=== PATIENT | female | born 1965 | race Caucasian/White ===

== ENCOUNTER 2024-12-05 03:41 | Inpatient (IN) | payer MEDICAID ==
[~2024-12-05] VITALS: Ht 172.7 cm; Wt 71.9 kg
[2024-12-05] VITALS (30 sets, daily range): BP systolic 91–130; BP diastolic 34–68; PULSE 60–120; RESP 14–22; TEMP 98.4–99; O2SAT 96–100
--- NOTE | 2024-12-05 04:02 | Physician Documentation ---
History of Present Illness ~ Chief Complaint: Bloody Emesis Stated Complaint: [facility]FSHANTA FROM [facility] Time Seen by MD: 03:47 HPI 59-year-old female h/o hep C presenting for hematemesis. She reports being diagnosed approximately 5 years ago with hepatitis C for which she completed therapy. She was told that the time that she had cirrhosis. She has not followed up since then. She drinks occasionally 1-2 drinks per month. She tells me she has been yellow for about a year. Today she developed bright red hematemesis and bright red hematochezia CT angio abdomen and pelvis moderate ascites occlusion of the portal vein occlusive thrombus SMV trace left pleural effusion. 3 cm hypodense lesion left hepatic lobe cirrhotic liver with splenomegaly hgb11.0 12/04-> 8.3 12/05 Received 10 mg of vitamin K, 1 g ceftriaxone, 100 mcg octreotide 1000 mL normal saline, albumin, Protonix Sodium 139 total bilirubin 8.74 ALT 92 AST 163 alk-phos 415 lactic acid 2.4 Medication Reconciliation Allergies: Coded Allergies: pseudoephedrine (Verified Allergy, Unknown, 12/05/24) triprolidine (Verified Allergy, Unknown, 12/05/24) Uncoded Allergies: TRIPOLIDINE HYDROCHLORIDE (Allergy, Unknown, 12/05/24) Scheduled Allopurinol* (Allopurinol*), 1 TAB PO DAILY, (Reported) Baclofen (Baclofen), 1 TAB PO HS, (Reported) Bupropion XL (Bupropion Xl), 1 TAB PO QAM, (Reported) Buspirone Hcl* (Buspar*), 1 TAB PO Q12H, (Reported) Celecoxib* (Celebrex*), 100 MG PO DAILY, (Reported) Cholecalciferol (Vitamin D3) (Vitamin D3), 1 TAB PO DAILY, (Reported) Clonidine HCl (Clonidine HCl), 1 TAB PO HS, (Reported) Ferrous Sulfate* (Ferrous Sulfate*), 1 TAB PO DAILY, (Reported) Folic Acid* (Folic Acid*), 1 TAB PO DAILY, (Reported) Hydroxychloroquine Sulfate (Plaquenil), 1 TAB PO Q12H, (Reported) Levothyroxine Sodium (Levothyroxine Sodium), 1 TAB PO QAM, (Reported) Montelukast Sodium (Montelukast Sodium), 1 TAB PO DAILY, (Reported) Paliperidone Palmitate (Invega Trinza), 1.75 ML IM [id number], (Reported) Pantoprazole Sodium (PROTONIX tablet), 1 TAB PO DAILY, (Reported) Potassium Chloride (Klor-Con 8), 1 TAB PO DAILY, (Reported) Trazodone Hcl (Trazodone Hcl), 1-2 TAB PO HS, (Reported) Scheduled PRN Albuterol Sulfate (Ventolin Hfa), 2 PUFFS INH Q4HPRN PRN for wheezing, (Reported) Gabapentin (Neurontin), 1 CAP PO TID PRN for pain, (Reported) Meclizine HCl (Meclizine HCl), 1 TAB PO Q8H PRN for nausea/vomiting, (Reported) Discontinued Medications Clonazepam (Klonopin), 2 TAB PO Q12H PRN PRN for anxiety, (Reported) Discontinued Reason: patient no longer taking Colchicine (Colchicine), 1 CAP PO Q12H, (Reported) Discontinued Reason: patient no longer taking Levothyroxine Sodium* (Synthroid*), 1 TAB PO DAILY, (Reported) Discontinued Reason: wrong med Levothyroxine Sodium* (Synthroid*), 1 TAB PO DAILY, (Reported) Discontinued Reason: wrong med Trazodone HCl (Trazodone HCl), 1 TAB PO HS, (Reported) Discontinued Reason: Prescription changed Review of Systems All Other Systems at this time: Reviewed and Negative Constitutional: Denies: fever Respiratory: Denies: SOB with exertion Cardiovascular: Denies: chest pain Gastrointestinal: Denies: abdomen distended, abdominal pain Physical Exam Vital Signs: Temperature: 98.8, Source: Oral, Heart Rate: 114, Respiratory Rate: 18, BP: 97/68, Pulse Oximetry: 98, Weight: 70.450 Physical Exam Jaundiced Nontoxic No active hematemesis or hematochezia The resting comfortably Pulmonary clear to auscultation bilaterally Abdomen soft nontender positive hepatomegaly Neuro awake alert oriented Progress Results/Orders Reviewed/noted all lab results: Yes Results/Orders Orders - RATNA IRBY MD Hepatitis C Ab W/Reflex To Pcr (12/05/24 04:07) Hep A Ab, Igm (12/05/24 04:07) Hep B Core Ab, Tot (12/05/24 04:07) Type And Screen (12/05/24 04:07) Page Hospitalist (12/05/24 04:07) Fill Out Med Reconciliation (12/05/24 04:07) Normal Saline 100ml... W/Octreotide Inj. (12/05/24 04:10) Completed Orders - RATNA IRBY MD Cbc/Diff (12/05/24 04:07) CMP (12/05/24 04:07) Direct Bili (12/05/24 04:07) Pt Inr (12/05/24 04:07) PTT (12/05/24 04:07) Vital Signs 12/05/24 12/05/24 12/05/24 03:44 03:53 04:01 Temp 98.8 98.8 Pulse 114 109 Resp 18 18 14 B/P (MAP) 97/68 97/68 (78) Pulse Ox 98 98 Medical Decision Making Additional info obtained from: old records Additional Comments Esophageal varices, gastric ulcer, spontaneous bacterial peritonitis Departure Disposition: ADMITTED INPATIENT Admitted to Inpatient Unit: to hospitalist Impression: Primary Impression: Hematemesis Qualified Codes: K92.0 - Hematemesis Additional Impressions: Hematochezia Cirrhosis Qualified Codes: K74.60 - Unspecified cirrhosis of liver; R18.8 - Other ascites Referrals: NO PRIMARY CARE PROVIDER (PCP) Critical Care Note Total Time (mins): 30 Critical Care Note The very real possibility of a deterioration of this patient's condition required the highest level of my preparedness for sudden, emergent intervention. I provided critical care services, which included medication orders, frequent reevaluations of the patient's condition and response to treatment, ordering and reviewing test results, and discussing the case with various consultants. Excludes time spent performing separately billable procedures. The critical care time associated with the care of the patient was 30 minutes in acute active GI bleed requiring transfusion. Signature Scribe Signature: na Attestation: RATNA Coleman MD Dec 05, 2024 04:02
[2024-12-05] MEDS ORDERED: potassium Cl 40MEQ/1/2NS 520ml 520 ML IV PRN (04:50)
[2024-12-05] MEDS ORDERED: magnesium Cl slow-release 64mg tablet PO PRN (04:50)
[2024-12-05] MEDS ORDERED: acetaminophen 325mg tablet PO PRN (04:50)
[2024-12-05] MEDS ORDERED: potassium Cl 20 mEq SR tablet PO PRN ×2 (04:50)
[2024-12-05] MEDS ORDERED: magnesium sulf-water 4G/100mL 100 ML IV PRN (04:50)
[2024-12-05] MEDS ORDERED: magnesium sulf-water 2g/50mL 50 ML IV PRN (04:50)
[2024-12-05 05:09] LABS: APTT 35 SECONDS (22-32); INR 2.2 INR; PROTHROMBIN TIME 21.1 SECONDS (9.0-12.0)
[2024-12-05 05:11] LABS: ALANINE AMINOTRANSFERASE 49 U/L (12-78); ALBUMIN 3.8 G/DL (3.4-5.0); ALKALINE PHOSPHATASE 210 IU/L (46-116); ANION GAP 11 (8-16); ASPARTATE AMINO TRANSFERASE 75 U/L (10-37); BILIRUBIN,DIRECT 5.1 MG/DL (0-0.3); BILIRUBIN,TOTAL 6.7 MG/DL (0.1-1.0); BLOOD UREA NITROGEN 13 MG/DL (7-18); BUN/CREATININE RATIO 16.7 (10.0-20.0); CALCIUM 8.3 MG/DL (8.5-10.1); CHLORIDE 110 MMOL/L (99-107); CREATININE 0.78 MG/DL (0.40-0.90); GLUCOSE 120 MG/DL (70-104); POTASSIUM 4.4 MMOL/L (3.5-5.1); SODIUM 142 MMOL/L (135-145); TOTAL CARBON DIOXIDE 21.5 MMOL/L (24-32); eCRCL 80 ML/MIN; eGFR 76 ML/MIN
[2024-12-05] MEDS ORDERED: COLC0.6C3 PO (05:12)
[2024-12-05] MEDS ORDERED: CLON-850 PO (05:12)
[2024-12-05] MEDS ORDERED: TRAM50TA2 PO (05:12)
[2024-12-05] MEDS ORDERED: LAMO100T2 PO (05:12)
[2024-12-05] MEDS ORDERED: POTA8TAB69 PO (05:12)
[2024-12-05] MEDS ORDERED: TRAZ-256 PO (05:12)
[2024-12-05] MEDS ORDERED: MONT-40 PO (05:12)
[2024-12-05] MEDS ORDERED: MELO-102 PO (05:12)
[2024-12-05] MEDS ORDERED: SYN0.088T PO (05:12)
[2024-12-05] MEDS ORDERED: QUET25TA PO (05:12)
[2024-12-05] MEDS ORDERED: FERR325T28 PO (05:12)
[2024-12-05] MEDS ORDERED: HYDR200T80 PO (05:12)
[2024-12-05 05:14] LABS: ALBUMIN/GLOBULIN RATIO 2.5 (1.1-1.5); TOTAL PROTEIN 5.3 G/DL (6.4-8.2)
--- NOTE | 2024-12-05 05:19 | HISTORY AND PHYSICAL-Residence ---
History & Physical Providers to CC Resident Creating Document: YARELI COREY, RES ~ History of Present Illness Reason for Admit\Complaint: GI BLEED History of Present Illness 59-year-old female with history of hepatitis-C status post treatment, cirrhosis of liver, is transferred from [place] for further management of GI bleed. Yesterday at around 5:30 p.m. she took her evening medications and then started having hematemesis. She had to run to the bathroom but could not make it, she also had hematochezia. Has had three episodes of hematochezia so far with the most recent being here in the ED showing bright red blood. Denies any similar episodes in the past. Denies significant chest pains, diaphoresis, fevers/chills, nasal congestion, palpitations, or weight loss/weight gain. Drinks alcohol rarely. For about a year she has been icteric. She was diagnosed with cirrhosis 10 years ago. She does see a GI doctor. She had a colonoscopy around 10 years ago, does not remember the findings. No EGD in the past. Not on blood thinners. Discussed advanced care directives and wishes to be full code. CT abdomen pelvis with contrast at [facility]: Portal vein thrombosis with cavernous transformation. Occluded SMV. Cirrhotic liver and ischemic changes from the thrombosed portal vein. Underlying lesion could not be excluded. 3 cm hypodense lesion left lateral hepatic lobe. Moderate ascites. Was given 1 unit blood at the facility. She also received 10 mg of vitamin K, 1 g of ceftriaxone, octreotide and 1 L normal saline, albumin and Protonix. Allergies: Coded Allergies: pseudoephedrine (Verified Allergy, Unknown, 12/05/24) triprolidine (Verified Allergy, Unknown, 12/05/24) Uncoded Allergies: TRIPOLIDINE HYDROCHLORIDE (Allergy, Unknown, 12/05/24) Past Medical History Past Medical History Cirrhosis Hepatitis-C COPD Past Surgical History Surgical History Comment Endometrial ablation Tubal ligation ROS All Other Systems: Reviewed and Negative ROS Reviewed in full. All negative except for pertinent positive HPI. Constitutional: Denies: fever Respiratory: Denies: SOB with exertion Cardiovascular: Denies: chest pain Gastrointestinal: Denies: abdomen distended, abdominal pain Exam Vitals: Vital Signs Date Time Temp Pulse Resp B/P (MAP) Pulse Ox O2 Delivery O2 Flow Rate FiO2 4/17/25 04:01 98.8 109 14 97/68 (78) 98 General: General: Icteric, Awake and Alert, no acute distress. HEENT: Conjunctiva pale, Sclera icteric, Mucus Membranes dry. Neck: Supple without masses and tenderness. Resp: Unlabored. Equal breath sounds bilaterally. Heart: Regular rhythm, normal S1 and S2, no rub, murmur or gallop. Abdomen: Abdomen distended, tympanic to percussion. Soft, nontender. Normal bowel sounds x4. No guarding or rigidity. Extremities: Normal ROM, no swelling, nontender. No cyanosis,clubbing or e kinza. [employer]: No gross motor or sensory abnormalities. Skin: Icteric appearing. Diagnostic Data Diagnostic Data: Laboratory Tests Test 12/05/24 04:38 Coagulation Comments Advance Care Planning Advanced Care plannin - 30 Minutes Additional Plan 59-year-old female with history of hepatitis-C status post treatment, cirrhosis of liver, is transferred from [place] for further management of GI bleed. Active upper and lower GI bleed, likely variceal bleed Cirrhosis of liver History of hepatitis-C status post treatment Transaminitis Hyperbilirubinemia secondary to above Portal vein thrombosis Awaiting labs at our facility H&H at the other facility 8.3, 25, MCV 88, BUN 13 and creatinine 0.81 was given 1 unit blood transfusion Bilirubin 8.7, ALT 92, AST 16.3, ALP 415, lactic acid 2.4 Repeat H&H, monitor q.4 H&H and transfuse for hemoglobin less than seven CT abdomen pelvis with IV contrast done shows findings positive for portal vein thrombosis with cavernous transformation and occluded SMV. Cirrhotic liver with Splenomegaly and moderate ascites. Started IV Protonix and octreotide Fluid resuscitation normal saline at 75 mL/hour, follow up with repeat lactic Recommended to start spironolactone when stable Continue IV ceftriaxone We will start propranolol as this could be secondary to variceal bleed NPO now, consult GI in a.m. While rounding it was noted that the patient is having active and persistent lower GI bleed, considering she is a cirrhotic and this is probably variceal bleed, we will give her another unit of PRBC and 1 unit of FFP. As per intensivists recommendation she will be transferred to the ICU for further monitoring and care. History of COPD not in exacerbation Awaiting med rec Code Status: Full code DVT prophylaxis: None in view of GI bleed Analgesia/sedation: None Line/tube: PIV GI prophylaxis: Protonix Nutrition: NPO Prognosis: Guarded Disposition: Continue medical management. Yareli Corey MD. IM Resident PGY-2 Helio Addendum #1 Neuro: - Monitor for delirium and hepatic encephalopathy, given history of HCV cirrhosis. #2 CV: - Pt HD stable, monitor vitals closely due to potential for variceal bleeding. #3 Pulm: Pt with history of COPD. - Monitor for respiratory distress; consider BiPAP if hypercapneic or in acute respiratory failure. #4 GI: Pt with GI bleed in the context of HCV cirrhosis and liver dysfunction (MELD 20). Differential diagnosis includes variceal bleed, which is prioritized due to cirrhosis, vs PUD vs colon-related bleed. Transfer to ICU as nurse reports ongoing bleeding. - Start IV protonix and octreotide for suspected variceal bleeding. - Administer vitamin K to address coagulopathy related to liver dysfunction. - Obtain large bore IV access, type and screen, transfuse to maintain Hgb > 7, Plt > 50, INR <1.7. - Consult GI urgently for endoscopic evaluation. - Monitor for signs of hypotension, infection, and encephalopathy. #5 Renal: - Monitor electrolytes #6 ID: SBP ppx with ceftriaxone - Monitor for infection #7 Endo: - Maintain FS 150-180 to prevent stress hyperglycemia. #8 Heme/Onc: - Monitor for bleeding and thrombosis risk. - Replete to INR <1.6, Plt >50, or aPTT <50. - If bleeding persists, repeat INR, CBC, aPTT, fibrinogen, and perform TEG/AMPARO. #9 PPx: - Use SCD for DVT prophylaxis. - Continue PPI f I spent a total of greater than 60 minutes formulating critical care for this patient today. I saw this patient and completed a full visual exam via audio- visual HIPAA compliant technology. Date of Service: Dec 05, 2024 Billing Provider: LENORE BEACH MD, ELIZABETH, RES Dec 05, 2024 05:19 LENORE BEACH MD Dec 05, 2024 07:43
[2024-12-05] MEDS: pantoprazole 40MG/NS 100ML BAG 100 ML IV SCH (05:33)
[2024-12-05] MEDS: octreotide inj. 500 MCG in normal saline 100ml IV soln 97.5 ML IV ONE (05:35)
[2024-12-05] MEDS: normal saline 1000ml 1,000 ML IV SCH (05:51)
[2024-12-05 05:57] LABS: MAGNESIUM 1.7 MG/DL (1.5-2.4); POTASSIUM 4.3 MMOL/L (3.5-5.1)
[2024-12-05 06:20] LABS: PHOSPHORUS 3.6 MG/DL (2.3-4.5)
[2024-12-05] MEDS ORDERED: PALI546S IM (06:23)
[2024-12-05] MEDS ORDERED: GABA300C PO (06:23)
[2024-12-05] MEDS ORDERED: LEVO50TA8 PO (06:23)
[2024-12-05 07:53] LABS: BASOPHILS % (AUTO) 0.1 % (0-1); EOSINOPHILS % (AUTO) 0.2 % (0-6); LYMPHOCYTES # (AUTO) 0.6 X10'3 (1.1-4.8); LYMPHOCYTES % (AUTO) 6.3 % (21-51); MEAN CORPUSCULAR HEMOGLOBIN 29.1 PG (27.0-31.0); MEAN CORPUSCULAR HGB CONC 33.1 g/dL (33.0-36.5); MEAN CORPUSCULAR VOLUME 87.8 FL (78-98); MEAN PLATELET VOLUME 7.5 FL (7.4-10.4); MONOCYTES # (AUTO) 0.6 X10'3 (0-0.9); MONOCYTES % (AUTO) 6.5 % (2-12); NEUTROPHILS # (AUTO) 7.7 X10'3 (1.8-7.7); NEUTROPHILS % (AUTO) 86.9 % (42-75); PLATELET COUNT 201 X10'3 (140-440); RED BLOOD COUNT 2.24 X10'6 (4.20-5.60); RED CELL DISTRIBUTION WIDTH 15.6 % (11.5-14.5); WHITE BLOOD COUNT 8.8 X10'3 (4.5-11.0)
[2024-12-05 07:54] LABS: HEMATOCRIT 19.7 % (35.0-45.0); HEMOGLOBIN 6.5 g/dl (12.0-16.0)
[2024-12-05] MEDS: K and/or MAG REPLACEMENT MC SCH (08:00)
[2024-12-05] MEDS ORDERED: propranolol 10mg tablet PO SCH (08:00)
[2024-12-05] MEDS: CefTRIAXone/D5W-Rocephin 1gm 50 ML IV SCH (09:29)
--- NOTE | 2024-12-05 09:49 | CONSULTATION REPORT - RESIDENT ---
Consult Providers to CC Resident Creating Document: SANDEE DAY RES CC: DAVE HUNT MD History of Present Illness Primary Medical Doctor: Dr. Muniz Reason for Admit\Complaint: hematemesis and hematochezia History of Present Illness 59-year-old female with history of cirrhosis, hep C status post treatment, COPD came as a transfer from [facility] for further evaluation of GI bleed. She had a few episodes of hematochezia yesterday associated with T2-4 episodes of hematemesis. She is having lightheadedness. Denies any syncope. She denies previous history of GI bleed. Denies melena. Not on any blood thinners. She does not recollect having an EGD done in the past but a colonoscopy was done but she does not know the findings. Patient was initially admitted to the floor and then transferred to the ICU in view of recurrent hematochezia. Her hemoglobin dropped and she received one PRBC transfusion the transferring facility and when she came here her hemoglobin was 8 which then dropped to 6.5 and is currently receiving another PRBC transfusion along with FFP. She received treatment with vitamin K, octreotide, Protonix, ceftriaxone and albumin. Allergies: Coded Allergies: pseudoephedrine (Verified Allergy, Unknown, 12/05/24) triprolidine (Verified Allergy, Unknown, 12/05/24) Uncoded Allergies: TRIPOLIDINE HYDROCHLORIDE (Allergy, Unknown, 12/05/24) Home Medications Home Medications Active Reported Neurontin (Gabapentin) 300 Mg Capsule 1 Cap PO TID Levothyroxine Sodium 50 Mcg Tablet 1 Tab PO QAM Invega Trinza (Paliperidone Palmitate) 546 Mg/1.75 Ml Syringe 1.75 Ml IM Q30D Meloxicam 15 Mg Tablet 1 Tab PO DAILY 30 Days Klor-Con 8 (Potassium Chloride) 8 Meq Tablet.er 1 Tab PO DAILY 30 Days Ferrous Sulfate* (Ferrous Sulfate) 325 Mg Tablet 1 Tab PO Q48H Lamictal* (Lamotrigine) 100 Mg Tablet 2 Tab PO DAILY 30 Days Plaquenil (Hydroxychloroquine Sulfate) 200 Mg Tablet 1 Tab PO Q12H 30 Days Colchicine 0.6 Mg Capsule 1 Cap PO Q12H 30 Days Klonopin (Clonazepam) 0.5 Mg Tablet 2 Tab PO Q12H PRN PRN 30 Days Seroquel (Quetiapine Fumarate) 25 Mg Tablet 2 Tab PO HS Seroquel (Quetiapine Fumarate) 25 Mg Tablet 1 Tab PO HS 30 Days Montelukast Sodium 10 Mg Tablet 1 Tab PO DAILY 30 Days Tramadol HCl 50 Mg Tablet 1 Tab PO Q12H PRN PRN 30 Days Trazodone HCl 100 Mg Tablet 1 Tab PO HS 30 Days Past Medical History Past Medical History Cirrhosis, COPD, hep C treatment done Past Surgical History Surgical History Comment Endometrial ligation, tubal ligation ROS ROS ROS Constitutional: No fever, positive for dizziness, weakness. no change in appetite/weight HEENT: No blurring of the vision, No sore throat, epistaxis, tinnitus Cardiovascular: No chest pain/discomfort, palpitations, syncope. No pedal edema Respiratory: No sob, cough,, hemoptysis Gastrointestinal: Positive for hematemesis, hematochezia No abdominal pain, nausea, vomiting. No diarrhea, constipation, melena. Genitourinary: No frquency, urgency, incontinence, nocturia. No dysuria, hematuria Musculoskeletal: No arthralgia, myalgia Endocrine: No, polydipsia, polyuria. No heat or cold intolerance Neurologic: No headache, vertigo. No weakness, numbness or tingling of extremities Psychiatric: No hallucinations/delusions, no anhedonia, no suicidal ideation\ Reviewed in full. All negative except for pertinent positives in HPI Exam Vitals: Vital Signs Date Time Temp Pulse Resp B/P (MAP) Pulse Ox O2 Delivery O2 Flow Rate FiO2 12/05/24 09:02 98.7 100 20 112/57 12/05/24 09:00 96 Room Air General: General: Adult female, AAO x4, not in apparent distress, skin appears yellowish orange tinged Head: Normocephalic with an atraumatic Eyes: Pupils- 3mm, reacting to light, conjunctiva- anicteric Nose and throat: No polyps, septum- normal, no mucosal ulcers Neck: Supple, no lymphadenopathy, no carotid bruit Respiratory: No use of accessory muscles of respiration, Bilateral normal vesiscular breath sounds heard. No wheeze, rhochi or creps Cardiac: S1-S2 heard, rythm regular, no gallop/murmur Abdomen: distended, ascites present no tenderness, no organomegaly, bowel sounds- heard, she is having active hematochezia Extremities: no clubbing, no pedal edema, no deformities, peripheral pulses- 2+ Skin: warm and dry, no rash, no purpura Neuro: No focal deficit, gross cranial nerve exam- normal Diagnostic Data Last Recorded Lab Results: 12/05/24 0722 12/05/24 0519 Diagnostic Data: Laboratory Tests Test 12/05/24 04:38 Prothrombin Time 21.1 SECONDS (9.0-12.0) H INR International Normalized Ratio 2.2 INR Activated Partial Thromboplast Time 35 SECONDS (22-32) H Coagulation Comments Additional Plan 59 F with history of hep C status post treatment, cirrhosis, COPD came as a transfer from [facility] for further evaluation and management of GI bleed. CT abdomen pelvis with contrast at [place]: Portal vein thrombosis with cavernous transformation. Occluded SMV. Cirrhotic liver and ischemic changes from the thrombosed portal vein. Underlying lesion could not be excluded. 3 cm hypodense lesion left lateral hepatic lobe. Moderate ascites Gastrointestinal Hematemesis and hematochezia-suspect esophageal varices versus PUD HCV cirrhosis- MELD of 20 Ascites, Portal vein thrombosis 3 cm hypodense lesion in the left lobe -continue IV Protonix, octreotide -GI consulted for endoscopic evaluation. Appreciate recs -possibly needs diagnostic therapeutic paracentesis -continue SBP prophylaxis with Rocephin -needs further evaluation with MRI abdomen to further characterize the liver lesion -follow up on viral serology Neuro -monitor for hepatic encephalopathy given history of cirrhosis -lactulose 20 mg q12, after endoscopy is done Pulmonary History of COPD -currently not in exacerbation, -albuterol nebulization p.r.n. for wheezing Hematology Anemia, likely acute blood loss Coagulopathy secondary to liver disease -H&H 6.5/19.7, receiving another PRBC transfusion and FFP transfusion for INR of 2.2 -replete to INR of less than 1.6, platelets of more than 50 or aPTT of <50 -If bleeding persists, repeat INR, CBC, aPTT, fibrinogen, and perform TEG/AMPARO. Renal -monitor BMP, at risk of progression to LUCIANO Endo -monitor blood glucose to maintain between 150-180 to prevent stress-induced hyperglycemia Cardiovascular -patient's has been maintaining, continue normal saline at 75 cc per hr Code Status: Full Analgesia/sedation: [place] Line/tube: PIV GI prophylaxis: Protonix DVT prophylaxis: SCD Nutrition: NPO Prognosis: Guarded Disposition: Continue care in ICU, EGD today Sandee Day, ICU PGY-2 resident Date of Service: Dec 05, 2024 Billing Provider: DAVE HUNT MD,SANDEE, RES Dec 05, 2024 09:49
[2024-12-05] MEDS ORDERED: CLON0.1T2 PO (11:46)
[2024-12-05] MEDS ORDERED: TRAZ150T78 PO (11:46)
[2024-12-05] MEDS ORDERED: FOLI1TAB27 PO (11:48)
[2024-12-05] MEDS ORDERED: ALBU18HF2 INH (11:58)
[2024-12-05] MEDS ORDERED: BACL10TA2 PO (11:58)
[2024-12-05] MEDS ORDERED: ALLO100T PO (11:58)
[2024-12-05] MEDS ORDERED: BUPR-344 PO (11:58)
[2024-12-05] MEDS ORDERED: PANT-47 PO (11:58)
[2024-12-05] MEDS ORDERED: CELE-193 PO (11:58)
[2024-12-05] MEDS ORDERED: BUSP5TAB3 PO (11:58)
[2024-12-05] MEDS ORDERED: CHOL100017 PO (11:58)
[2024-12-05] MEDS ORDERED: MECL-302 PO (11:58)
--- NOTE | 2024-12-05 12:12 | CONSULTATION REPORT - RESIDENT ---
Consult Providers to CC Resident Creating Document: HERSON RAO, RES CC: HEIDE WILHELM MD History of Present Illness Reason for Admit\Complaint: Hemetemsis and hematochezia History of Present Illness 59-year-old female with history of cirrhosis, hep C status post treatment, COPD came as a transfer from [facility] for further evaluation of GI bleed. She had a few episodes of hematochezia yesterday associated with T2-4 episodes of hematemesis. She is having lightheadedness. Denies any syncope. She denies previous history of GI bleed. Denies melena. Not on any blood thinners. She does not recollect having an EGD done in the past but a colonoscopy was done but she does not know the findings. Patient was initially admitted to the floor and then transferred to the ICU in view of recurrent hematochezia. Her hemoglobin dropped and she received one PRBC transfusion the transferring facility and when she came here her hemoglobin was 8 which then dropped to 6.5 and is currently receiving another PRBC transfusion along with FFP. She received treatment with vitamin K, octreotide, Protonix, ceftriaxone and albumin. GI was consulted in view of the above. Allergies: Coded Allergies: pseudoephedrine (Verified Allergy, Unknown, 12/05/24) triprolidine (Verified Allergy, Unknown, 12/05/24) Uncoded Allergies: TRIPOLIDINE HYDROCHLORIDE (Allergy, Unknown, 12/05/24) Home Medications Home Medications Active Reported Ventolin Hfa (Albuterol Sulfate) 90 Mcg Hfa.aer.ad 2 Puffs INH Q4HPRN PRN Bupropion Xl (Bupropion HCl) 300 Mg Tab.er.24h 1 Tab PO QAM Celebrex* (Celecoxib) 100 Mg Capsule 100 Mg PO DAILY Vitamin D3 (Cholecalciferol (Vitamin D3)) 25 Mcg (1000 Unit) Tablet 1 Tab PO DAILY PROTONIX tablet (Pantoprazole Sodium) 40 Mg Tablet.dr 1 Tab PO DAILY Meclizine HCl 25 Mg Tablet 1 Tab PO Q8H PRN Baclofen 10 Mg Tablet 1 Tab PO HS Buspar* (Buspirone HCl) 5 Mg Tablet 1 Tab PO Q12H Allopurinol* (Allopurinol) 100 Mg Tablet 1 Tab PO DAILY Folic Acid* (Folic Acid) Y Tab 1 Tab PO DAILY Clonidine HCl 0.1 Mg Tablet 1 Tab PO HS Trazodone Hcl 150 Mg Tablet 1-2 Tab PO HS Neurontin (Gabapentin) 300 Mg Capsule 1 Cap PO TID PRN Levothyroxine Sodium 50 Mcg Tablet 1 Tab PO QAM Invega Trinza (Paliperidone Palmitate) 546 Mg/1.75 Ml Syringe 1.75 Ml IM [id number] Klor-Con 8 (Potassium Chloride) 8 Meq Tablet.er 1 Tab PO DAILY Ferrous Sulfate* (Ferrous Sulfate) 325 Mg Tablet 1 Tab PO DAILY Plaquenil (Hydroxychloroquine Sulfate) 200 Mg Tablet 1 Tab PO Q12H Montelukast Sodium 10 Mg Tablet 1 Tab PO DAILY Past Medical History Past Medical History Cirrhosis, COPD, hep C treatment done Past Surgical History Surgical History Comment Endometrial ligation, tubal ligation ROS ROS All other systems negative except for the pertinent positives mentioned in the HPI Exam Vitals: Vital Signs Date Time Temp Pulse Resp B/P (MAP) Pulse Ox O2 Delivery O2 Flow Rate FiO2 12/05/24 11:26 98.4 104 14 114/66 12/05/24 11:00 99 Room Air General: General: Elderly, AOX4 HEENT: PERRLA, no icterus, pallor, lymphadenopathy, carotid bruit Respiratory system: Bilateral vesicular breath sounds heard, no adventitious breath sounds CVS: S1-S2 heard, no murmurs/rubs/gallop GI: distended, ascites present no tenderness, no organomegaly, bowel sounds- heard, she is having active hematochezia Neuro: No focal neurological deficits present Extremities: No edema cyanosis clubbing/deformities Skin: Warm and dry Diagnostic Data Last Recorded Lab Results: 12/05/24 0722 12/05/24 0519 Diagnostic Data: Laboratory Tests Test 12/05/24 04:38 Prothrombin Time 21.1 SECONDS (9.0-12.0) H INR International Normalized Ratio 2.2 INR Activated Partial Thromboplast Time 35 SECONDS (22-32) H Coagulation Comments Additional Plan Assessment: 59 F with history of hep C status post treatment, cirrhosis, COPD came as a transfer from [facility] for further evaluation and management of GI bleed. GI is consulted for the management of upper and Lower GI bleed. Plan Acxute decompemsated Liver cirrhosis Hematemesis and hematochezia-suspect esophageal varices versus PUD HCV cirrhosis- MELD of 20 Portal vein thrombosis Continue IV Protonix, octreotide Possibly needs diagnostic therapeutic paracentesis Continue SBP prophylaxis with Rocephin -needs further evaluation with MRI abdomen to further characterize the liver lesion -follow up on viral serology EGD, NPO Hypochromic Microcytic Anemia 2/2 acute blood loss Coagulopathy secondary to liver disease -H&H 6.5/19.7, receiving another PRBC transfusion and FFP transfusion for INR of 2.2 -replete to INR of less than 1.6, platelets of more than 50 or aPTT of <50 -If bleeding persists, repeat INR, CBC, aPTT, fibrinogen, and perform TEG/AMPARO. Code Status: Full Analgesia/sedation: [place] Line/tube: PIV GI prophylaxis: Protonix DVT prophylaxis: SCD Nutrition: NPO Prognosis: Guarded Disposition: EGD, NPO Herson Rao MD Internal Medicine, PGY 1 Date of Service: Dec 05, 2024 Billing Provider: HEIDE WILHELM MD, SIVA, RES Dec 05, 2024 12:12
[2024-12-05] MEDS ORDERED: diphenhydrAMINE 50 mg/ml inj ONE (12:36)
[2024-12-05] MEDS ORDERED: MIDAZolam 1 MG/ML 5ML VIAL ONE (12:36)
[2024-12-05] MEDS ORDERED: LIDOcaine 2% Viscous 15ml cup ONE (12:36)
[2024-12-05] MEDS ORDERED: fentaNYL/PF 50MCG/1 ML 2ML syringe ONE (12:36)
[2024-12-05 13:27] LABS: HEMATOCRIT 26.1 % (35.0-45.0); HEMOGLOBIN 8.8 g/dl (12.0-16.0); MEAN CORPUSCULAR HEMOGLOBIN 30.5 PG (27.0-31.0); MEAN CORPUSCULAR HGB CONC 33.7 g/dL (33.0-36.5); MEAN CORPUSCULAR VOLUME 90.5 FL (78-98); MEAN PLATELET VOLUME 7.6 FL (7.4-10.4); PLATELET COUNT 201 X10'3 (140-440); RED BLOOD COUNT 2.88 X10'6 (4.20-5.60); RED CELL DISTRIBUTION WIDTH 15.6 % (11.5-14.5); WHITE BLOOD COUNT 9.8 X10'3 (4.5-11.0)
[2024-12-05 17:20] LABS: HEMATOCRIT 24.2 % (35.0-45.0); HEMOGLOBIN 8.2 g/dl (12.0-16.0); MEAN CORPUSCULAR HEMOGLOBIN 30.3 PG (27.0-31.0); MEAN CORPUSCULAR HGB CONC 33.9 g/dL (33.0-36.5); MEAN CORPUSCULAR VOLUME 89.4 FL (78-98); MEAN PLATELET VOLUME 7.2 FL (7.4-10.4); PLATELET COUNT 211 X10'3 (140-440); RED BLOOD COUNT 2.71 X10'6 (4.20-5.60); RED CELL DISTRIBUTION WIDTH 15.3 % (11.5-14.5); WHITE BLOOD COUNT 10.3 X10'3 (4.5-11.0)
--- NOTE | 2024-12-05 20:08 | PROGRESS NOTE ---
Daily Progress Note Providers to CC ~ Antibiotic Timeout Antibiotic Ordered?: No Subjective The patient had two angy bright red bloody bowel movements this morning when I was evaluating her in the ICU. I talked to Dr. Lee route sales trainee who will take the patient for an EGD tomorrow in his considering taking the patient for a colonoscopy if the EGD is negative Objective Vital Signs Date Time Temp Pulse Resp B/P (MAP) Pulse Ox O2 Delivery O2 Flow Rate FiO2 12/05/24 19:00 98.4 117 20 114/49 (70) 96 Room Air Result Diagram: 12/05/24 1713 12/05/24 0519 Gen. No acute distress alert and oriented 4 Lungs clear to ascultation bilaterally, no wheezes rales or rhonchi appreciated Heart normal sinus rhythm no murmurs rubs or clicks noted Abdomen soft, moderately distended nontender bowel sounds are normoactive Lower extremities no clubbing cyanosis, nor edema appreciated bilaterally Coagulation Studies Laboratory Tests Test 12/05/24 04:38 Prothrombin Time 21.1 SECONDS (9.0-12.0) H INR International Normalized Ratio 2.2 INR Activated Partial Thromboplast Time 35 SECONDS (22-32) H Coagulation Comments Problem\Assessment\Plan Problems/Diagnosis: (1) Hematochezia # GI bleed with hematemesis and hematochezia- On a Protonix drip and octreotide drip route sales trainee is taking the patient for an EGD tomorrow and then if negative may take the patient for colonoscopy the following day. 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 Date of Service: Dec 05, 2024 Billing Provider: TOÑO LEY DO Common Visit Codes: NOT BILLABLE (Did after midnight to be billed by millinery worker) TOÑO LEY DO Dec 05, 2024 20:08
[2024-12-05 21:07] LABS: HEMATOCRIT 22.9 % (35.0-45.0); HEMOGLOBIN 7.8 g/dl (12.0-16.0); MEAN CORPUSCULAR HEMOGLOBIN 30.3 PG (27.0-31.0); MEAN CORPUSCULAR HGB CONC 34.1 g/dL (33.0-36.5); MEAN CORPUSCULAR VOLUME 88.9 FL (78-98); MEAN PLATELET VOLUME 7.4 FL (7.4-10.4); PLATELET COUNT 222 X10'3 (140-440); RED BLOOD COUNT 2.58 X10'6 (4.20-5.60); RED CELL DISTRIBUTION WIDTH 15.1 % (11.5-14.5); WHITE BLOOD COUNT 11.5 X10'3 (4.5-11.0)
[2024-12-05] MEDS: cloNIDine 0.1 mg tablet PO ONE (22:10)
[2024-12-06] VITALS (38 sets, daily range): BP systolic 91–143; BP diastolic 50–78; PULSE 100–122; RESP 11–22; TEMP 98.1–98.8; O2SAT 94–100
[2024-12-06 00:59] LABS: BASOPHILS % (AUTO) 0.4 % (0-1); EOSINOPHILS % (AUTO) 0.4 % (0-6); HEMOGLOBIN 7.2 g/dl (12.0-16.0); LYMPHOCYTES # (AUTO) 0.8 X10'3 (1.1-4.8); LYMPHOCYTES % (AUTO) 7.9 % (21-51); MEAN CORPUSCULAR HEMOGLOBIN 30.3 PG (27.0-31.0); MEAN CORPUSCULAR HGB CONC 33.9 g/dL (33.0-36.5); MEAN CORPUSCULAR VOLUME 89.4 FL (78-98); MEAN PLATELET VOLUME 7.2 FL (7.4-10.4); MONOCYTES # (AUTO) 0.9 X10'3 (0-0.9); MONOCYTES % (AUTO) 9.1 % (2-12); NEUTROPHILS # (AUTO) 8.1 X10'3 (1.8-7.7); NEUTROPHILS % (AUTO) 82.2 % (42-75); PLATELET COUNT 201 X10'3 (140-440); RED BLOOD COUNT 2.36 X10'6 (4.20-5.60); RED CELL DISTRIBUTION WIDTH 15.6 % (11.5-14.5); WHITE BLOOD COUNT 9.9 X10'3 (4.5-11.0)
[2024-12-06 01:07] LABS: HEMATOCRIT 21.1 % (35.0-45.0)
[2024-12-06 01:11] LABS: ALANINE AMINOTRANSFERASE 58 U/L (12-78); ALBUMIN 2.9 G/DL (3.4-5.0); ALKALINE PHOSPHATASE 216 IU/L (46-116); ANION GAP 10 (8-16); ASPARTATE AMINO TRANSFERASE 106 U/L (10-37); BILIRUBIN,TOTAL 10.4 MG/DL (0.1-1.0); BLOOD UREA NITROGEN 21 MG/DL (7-18); BUN/CREATININE RATIO 27.3 (10.0-20.0); CALCIUM 8.2 MG/DL (8.5-10.1); CHLORIDE 113 MMOL/L (99-107); CREATININE 0.77 MG/DL (0.40-0.90); GLUCOSE 113 MG/DL (70-104); MAGNESIUM 1.8 MG/DL (1.5-2.4); SODIUM 144 MMOL/L (135-145); TOTAL CARBON DIOXIDE 20.8 MMOL/L (24-32); eCRCL 81 ML/MIN; eGFR 77 ML/MIN
[2024-12-06 01:14] LABS: ALBUMIN/GLOBULIN RATIO 1.6 (1.1-1.5); PHOSPHORUS 3.1 MG/DL (2.3-4.5); POTASSIUM 4.5 MMOL/L (3.5-5.1); TOTAL PROTEIN 4.7 G/DL (6.4-8.2)
[2024-12-06] MEDS: HYDROcodone/acetaminophen 5mg/325mg tablet PO PRN (02:48)
[2024-12-06 06:22] LABS: BASOPHILS % (AUTO) 0.4 % (0-1); EOSINOPHILS % (AUTO) 0.4 % (0-6); LYMPHOCYTES % (AUTO) 8.7 % (21-51); MEAN CORPUSCULAR HEMOGLOBIN 30.4 PG (27.0-31.0); MEAN CORPUSCULAR HGB CONC 33.7 g/dL (33.0-36.5); MEAN CORPUSCULAR VOLUME 90.2 FL (78-98); MEAN PLATELET VOLUME 7.4 FL (7.4-10.4); MONOCYTES # (AUTO) 1.2 X10'3 (0-0.9); NEUTROPHILS # (AUTO) 9.5 X10'3 (1.8-7.7); NEUTROPHILS % (AUTO) 80.5 % (42-75); PLATELET COUNT 220 X10'3 (140-440); RED BLOOD COUNT 2.14 X10'6 (4.20-5.60); RED CELL DISTRIBUTION WIDTH 15.9 % (11.5-14.5); WHITE BLOOD COUNT 11.8 X10'3 (4.5-11.0)
[2024-12-06 06:27] LABS: HEMOGLOBIN 6.5 g/dl (12.0-16.0)
[2024-12-06 06:28] LABS: HEMATOCRIT 19.3 % (35.0-45.0)
--- NOTE | 2024-12-06 06:28 | PROGRESS NOTE ---
Progress Note Dictate Providers to CC ~ Progress Note: Hgb trending down however no obvious bleeding last night. EGD today Central Line/PICC still needed: N\A Antibiotic Ordered?: Yes Subjective Subjective No new acute issues Objective Vitals Vital Signs Date Time Temp Pulse Resp B/P (MAP) Pulse Ox O2 Delivery O2 Flow Rate FiO2 12/06/24 05:00 109 18 109/60 (76) 96 Room Air 12/06/24 04:00 98.4 Lab Results: 12/06/24 0046 12/06/24 0046 Objective Heart: S1-2 reg Lungs: ronchi at bases Abdomen: Soft, non-tender, BS (+) Ext: No edema Neuro: awake, alert Coagulation Studies Laboratory Tests Test 12/05/24 04:38 Prothrombin Time 21.1 SECONDS (9.0-12.0) H INR International Normalized Ratio 2.2 INR Activated Partial Thromboplast Time 35 SECONDS (22-32) H Coagulation Comments Problem\Assessment\Plan Additional Plan 1-GIB -EGD today -F/U Hgb and transfuse PRBC as needed -Continue Protonix 2-Liver Cirrhosis/Hep C/Portal Vein Thrombosis -Supportive Tx -Resume Lactulose/Rifaximin Shira Hewitt CC time 35min Sepsis Screening Reassessment Date: Dec 06, 2024 DAVE HEWITT MD Dec 06, 2024 06:28
[2024-12-06] MEDS ORDERED: calcium gluconate inj. 2 GM in normal saline 100ml IV soln 100 ML IV ONE (06:40)
[2024-12-06] MEDS: CALCIUM GLUC 1gm/50ml NACL,iso 50 ML IV ONE ×2 (07:01→07:47)
[2024-12-06 09:12] LABS: HEP A AB, IGM Negative (Negative); HEP B CORE AB, TOT Negative (Negative); HEPATITIS C VIRUS ANTIBODY Reactive (Non Reactive)
[2024-12-06] MEDS: ondansetron/PF 4mg/2ml inj IV PRN (09:32)
[2024-12-06] MEDS ORDERED: LIDOcaine 2% Viscous 15ml cup ONE (11:51)
[2024-12-06] MEDS ORDERED: epiNEPHrine 0.1mg/ml 10ml syringe ONE (11:52)
[2024-12-06] MEDS ORDERED: fentaNYL/PF 50MCG/1 ML 2ML syringe ONE (12:25)
[2024-12-06] MEDS ORDERED: MIDAZolam 1 MG/ML 5ML VIAL ONE (12:25)
[2024-12-06] MEDS ORDERED: simethicone 40mg/0.6ml oral drops 30ml ONE (13:19)
--- NOTE | 2024-12-06 19:00 | PROGRESS NOTE ---
Daily Progress Note Providers to CC ~ Antibiotic Timeout Antibiotic Ordered?: No Subjective Patient had an EGD today which demonstrated severe portal hypertensive gastropathy I spoke with Dr. Queen audiovisual tech who states that the patient may bleed for another 3-7 days I have ordered a stat hemogram- MRI is ordered as well to evaluate the patient's liver mass Objective Vital Signs Date Time Temp Pulse Resp B/P (MAP) Pulse Ox O2 Delivery O2 Flow Rate FiO2 12/06/24 18:00 104 22 121/66 (84) 97 Room Air 12/06/24 17:00 98.2 12/06/24 13:28 3.0 Result Diagram: 12/06/24 0558 12/06/24 0046 Gen. No acute distress alert and oriented 4 Lungs clear to ascultation bilaterally, no wheezes rales or rhonchi appreciated Heart normal sinus rhythm no murmurs rubs or clicks noted Abdomen soft, moderately distended nontender bowel sounds are normoactive Lower extremities no clubbing cyanosis, nor edema appreciated bilaterally Coagulation Studies Laboratory Tests Test 12/05/24 04:38 Prothrombin Time 21.1 SECONDS (9.0-12.0) H INR International Normalized Ratio 2.2 INR Activated Partial Thromboplast Time 35 SECONDS (22-32) H Coagulation Comments Problem\Assessment\Plan Problems/Diagnosis: (1) Hematochezia # GI bleed with hematemesis and hematochezia- On a Protonix drip and octreotide drip audiovisual tech is taking the patient for an EGD tomorrow and then if negative may take the patient for colonoscopy the following day. 12/06 status post EGD which demonstrated severe portal hypertensive gastropathy- patient was on b.i.d. 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 # hypodense liver mass MRI with contrast of the abdomen is ordered Date of Service: Dec 06, 2024 Billing Provider: TOÑO LEY DO Common Visit Codes: [id number] INP/OBS CARE(HIGH) TOÑO LEY DO Dec 06, 2024 19:00
[2024-12-06 20:18] LABS: HEMATOCRIT 25.3 % (35.0-45.0); HEMOGLOBIN 8.5 g/dl (12.0-16.0); MEAN CORPUSCULAR HEMOGLOBIN 29.1 PG (27.0-31.0); MEAN CORPUSCULAR HGB CONC 33.5 g/dL (33.0-36.5); MEAN CORPUSCULAR VOLUME 87.1 FL (78-98); PLATELET COUNT 218 X10'3 (140-440); RED BLOOD COUNT 2.91 X10'6 (4.20-5.60); RED CELL DISTRIBUTION WIDTH 16.1 % (11.5-14.5); WHITE BLOOD COUNT 14.5 X10'3 (4.5-11.0)
[2024-12-06] MEDS: pantoprazole 40 MG vial IV SCH (20:38)
[2024-12-07] VITALS (17 sets, daily range): BP systolic 99–146; BP diastolic 54–75; PULSE 103–126; RESP 13–25; TEMP 97.4–98.1; O2SAT 91–97
[2024-12-07 03:56] LABS: BASOPHILS % (AUTO) 0.1 % (0-1); EOSINOPHILS # (AUTO) 0.1 X10'3 (0-0.9); EOSINOPHILS % (AUTO) 0.4 % (0-6); HEMATOCRIT 22.4 % (35.0-45.0); HEMOGLOBIN 7.6 g/dl (12.0-16.0); LYMPHOCYTES # (AUTO) 1.7 X10'3 (1.1-4.8); LYMPHOCYTES % (AUTO) 9.8 % (21-51); MEAN CORPUSCULAR HEMOGLOBIN 29.2 PG (27.0-31.0); MEAN CORPUSCULAR HGB CONC 34.1 g/dL (33.0-36.5); MEAN CORPUSCULAR VOLUME 85.8 FL (78-98); MEAN PLATELET VOLUME 6.7 FL (7.4-10.4); MONOCYTES # (AUTO) 1.6 X10'3 (0-0.9); MONOCYTES % (AUTO) 9.6 % (2-12); NEUTROPHILS # (AUTO) 13.6 X10'3 (1.8-7.7); NEUTROPHILS % (AUTO) 80.1 % (42-75); PLATELET COUNT 220 X10'3 (140-440); RED BLOOD COUNT 2.61 X10'6 (4.20-5.60); RED CELL DISTRIBUTION WIDTH 16.5 % (11.5-14.5)
[2024-12-07 04:06] LABS: ALANINE AMINOTRANSFERASE 82 U/L (12-78); ALBUMIN 2.6 G/DL (3.4-5.0); ALKALINE PHOSPHATASE 243 IU/L (46-116); ANION GAP 9 (8-16); ASPARTATE AMINO TRANSFERASE 161 U/L (10-37); BILIRUBIN,TOTAL 11.1 MG/DL (0.1-1.0); BLOOD UREA NITROGEN 27 MG/DL (7-18); CALCIUM 8.4 MG/DL (8.5-10.1); CHLORIDE 110 MMOL/L (99-107); CREATININE 0.71 MG/DL (0.40-0.90); GLUCOSE 108 MG/DL (70-104); MAGNESIUM 1.9 MG/DL (1.5-2.4); SODIUM 140 MMOL/L (135-145); TOTAL CARBON DIOXIDE 20.9 MMOL/L (24-32); eCRCL 88 ML/MIN; eGFR 85 ML/MIN
[2024-12-07 04:11] LABS: ALBUMIN/GLOBULIN RATIO 1.4 (1.1-1.5); PHOSPHORUS 2.2 MG/DL (2.3-4.5); POTASSIUM 4.1 MMOL/L (3.5-5.1); TOTAL PROTEIN 4.5 G/DL (6.4-8.2)
[2024-12-07 04:24] LABS: NUCLEATED RED BLOOD CELLS 1 /100WBC (0-0); TOTAL CELLS COUNTED 100
[2024-12-07 04:25] LABS: ANISOCYTOSIS 1+; PLATELET ESTIMATE NORMAL
[2024-12-07] MEDS: HYDROcodone/acetaminophen 10/325mg tab PO PRN (07:45)
[2024-12-07 14:48] LABS: MEAN CORPUSCULAR HEMOGLOBIN 29.5 PG (27.0-31.0); MEAN PLATELET VOLUME 6.5 FL (7.4-10.4); PLATELET COUNT 246 X10'3 (140-440); RED BLOOD COUNT 2.33 X10'6 (4.20-5.60); WHITE BLOOD COUNT 21.5 X10'3 (4.5-11.0)
[2024-12-07 14:51] LABS: HEMOGLOBIN 6.9 g/dl (12.0-16.0)
[2024-12-07 14:52] LABS: HEMATOCRIT 20.3 % (35.0-45.0)
--- NOTE | 2024-12-07 19:29 | PROGRESS NOTE ---
Daily Progress Note Providers to CC ~ Antibiotic Timeout Antibiotic Ordered?: Yes Subjective The patient hemoglobin did downtrend yesterday at 8.5 post transfusion to 6.9 this afternoon another unit of packed red blood cells is transfused patient's had multiple questions I am ordering a bleeding scan and the patient continues to drop her hemoglobin I will re-contact GI to we discuss the utility of obtaining a colonoscopy. Objective Vital Signs Date Time Temp Pulse Resp B/P (MAP) Pulse Ox O2 Delivery O2 Flow Rate FiO2 12/07/24 18:32 97.9 117 16 140/63 12/07/24 15:00 94 Room Air 12/06/24 13:28 3.0 Result Diagram: 12/07/24 1437 12/07/24 0308 Gen. No acute distress alert and oriented 4 Lungs clear to ascultation bilaterally, no wheezes rales or rhonchi appreciated Heart normal sinus rhythm no murmurs rubs or clicks noted Abdomen soft, moderately distended nontender bowel sounds are normoactive Lower extremities no clubbing cyanosis, nor edema appreciated bilaterally Coagulation Studies Laboratory Tests Test 12/05/24 04:38 Prothrombin Time 21.1 SECONDS (9.0-12.0) H INR International Normalized Ratio 2.2 INR Activated Partial Thromboplast Time 35 SECONDS (22-32) H Coagulation Comments Problem\Assessment\Plan Problems/Diagnosis: (1) Hematochezia # GI bleed with hematemesis and hematochezia- On a Protonix drip and octreotide drip sign carpenter is taking the patient for an EGD tomorrow and then if negative may take the patient for colonoscopy the following day. 12/06 status post EGD which demonstrated severe portal hypertensive gastropathy- patient was on b.i.d. 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 # hypodense liver mass MRI with contrast of the abdomen is ordered 12/07 the patient could not cooperate to obtain the MRI today- we will attempt to obtain the MRI again tomorrow- he may not be able to obtain the MRI unfortunately the patient may require a liver biopsy Date of Service: Dec 07, 2024 Billing Provider: TOÑO LEY DO Common Visit Codes: [id number] INP/OBS CARE(HIGH) TOÑO LEY DO Dec 07, 2024 19:29
[2024-12-07] MEDS: busPIRone 5mg tablet PO SCH (19:57)
[2024-12-07] MEDS: hydroxychloroquine 200mg tablet PO SCH (19:58)
[2024-12-07 21:29] LABS: HEMATOCRIT 24.3 % (35.0-45.0); HEMOGLOBIN 8.3 g/dl (12.0-16.0); MEAN PLATELET VOLUME 6.6 FL (7.4-10.4); RED CELL DISTRIBUTION WIDTH 15.9 % (11.5-14.5)
[2024-12-07 21:31] LABS: MEAN CORPUSCULAR HEMOGLOBIN 29.6 PG (27.0-31.0); MEAN CORPUSCULAR VOLUME 87.1 FL (78-98); PLATELET COUNT 251 X10'3 (140-440); RED BLOOD COUNT 2.79 X10'6 (4.20-5.60)
[2024-12-07 21:34] LABS: WHITE BLOOD COUNT 26.5 X10'3 (4.5-11.0)
[2024-12-07] MEDS: acetaminophen 325mg tablet PO PRN (22:13)
[2024-12-08] VITALS (11 sets, daily range): BP systolic 85–118; BP diastolic 38–76; PULSE 74–123; RESP 13–24; TEMP 96.4–97.9; O2SAT 94–99
[2024-12-08] MEDS: gabapentin 300mg capsule PO PRN (04:13)
[2024-12-08 06:33] LABS: RED BLOOD COUNT 2.43 X10'6 (4.20-5.60)
[2024-12-08 06:34] LABS: EOSINOPHILS # (AUTO) 0.1 X10'3 (0-0.9); LYMPHOCYTES # (AUTO) 3.8 X10'3 (1.1-4.8); MEAN CORPUSCULAR HEMOGLOBIN 29.9 PG (27.0-31.0); MEAN CORPUSCULAR HGB CONC 33.5 g/dL (33.0-36.5)
[2024-12-08 06:36] LABS: BASOPHILS # (AUTO) 0.1 X10'3 (0-0.2); BASOPHILS % (AUTO) 0.3 % (0-1); EOSINOPHILS % (AUTO) 0.2 % (0-6); HEMOGLOBIN 7.3 g/dl (12.0-16.0); LYMPHOCYTES % (AUTO) 12.6 % (21-51); MEAN CORPUSCULAR VOLUME 89.2 FL (78-98); MEAN PLATELET VOLUME 6.7 FL (7.4-10.4); MONOCYTES # (AUTO) 2.6 X10'3 (0-0.9); MONOCYTES % (AUTO) 8.7 % (2-12); NEUTROPHILS # (AUTO) 23.5 X10'3 (1.8-7.7); NEUTROPHILS % (AUTO) 78.2 % (42-75); PLATELET COUNT 236 X10'3 (140-440)
[2024-12-08 06:44] LABS: HEMATOCRIT 21.6 % (35.0-45.0); WHITE BLOOD COUNT 30.1 X10'3 (4.5-11.0)
[2024-12-08 06:53] LABS: ALANINE AMINOTRANSFERASE 94 U/L (12-78); ALBUMIN 2.5 G/DL (3.4-5.0); ALKALINE PHOSPHATASE 274 IU/L (46-116); ANION GAP 14 (8-16); BILIRUBIN,TOTAL 12.6 MG/DL (0.1-1.0); BLOOD UREA NITROGEN 37 MG/DL (7-18); BUN/CREATININE RATIO 36.3 (10.0-20.0); CALCIUM 8.5 MG/DL (8.5-10.1); CHLORIDE 105 MMOL/L (99-107); CREATININE 1.02 MG/DL (0.40-0.90); GLUCOSE 91 MG/DL (70-104); MAGNESIUM 1.9 MG/DL (1.5-2.4); SODIUM 137 MMOL/L (135-145); TOTAL CARBON DIOXIDE 17.9 MMOL/L (24-32); eCRCL 61 ML/MIN; eGFR 56 ML/MIN
[2024-12-08 07:11] LABS: ASPARTATE AMINO TRANSFERASE 223 U/L (10-37)
[2024-12-08 07:13] LABS: PHOSPHORUS 2.8 MG/DL (2.3-4.5); TOTAL PROTEIN 4.9 G/DL (6.4-8.2)
[2024-12-08 07:15] LABS: POTASSIUM 4.4 MMOL/L (3.5-5.1)
[2024-12-08 07:51] LABS: NUCLEATED RED BLOOD CELLS 4 /100WBC (0-0); TOTAL CELLS COUNTED 100
[2024-12-08 07:52] LABS: ANISOCYTOSIS 1+; PLATELET ESTIMATE NORMAL
[2024-12-08 07:53] LABS: BURR CELLS FEW; POLYCHROMASIA 1+; SCHISTOCYTES FEW
[2024-12-08] MEDS: levoTHYROXINE 25mcg tablet PO SCH (08:23)
[2024-12-08] MEDS: montelukast 10mg tablet PO SCH (08:23)
[2024-12-08] MEDS: allopurinol 100mg tablet PO SCH (08:24)
[2024-12-08] MEDS: BUPROPION HCL 150MG XL 24 HR 150 MG TAB PO SCH (08:24)
[2024-12-08] MEDS: folic acid 1mg tablet PO SCH (08:25)
[2024-12-08] MEDS: piperacillin/tazo 4.5gm/100ml 100 ML IV SCH (08:27)
[2024-12-08] MEDS: propranolol 10mg tablet PO ONE (10:35)
[2024-12-08 14:27] LABS: MEAN CORPUSCULAR HGB CONC 33.3 g/dL (33.0-36.5); MEAN CORPUSCULAR VOLUME 90.1 FL (78-98); MEAN PLATELET VOLUME 7.1 FL (7.4-10.4); PLATELET COUNT 232 X10'3 (140-440); RED BLOOD COUNT 2.24 X10'6 (4.20-5.60); RED CELL DISTRIBUTION WIDTH 16.5 % (11.5-14.5)
[2024-12-08 14:33] LABS: WHITE BLOOD COUNT 25.9 X10'3 (4.5-11.0)
[2024-12-08 14:34] LABS: HEMATOCRIT 20.2 % (35.0-45.0); HEMOGLOBIN 6.7 g/dl (12.0-16.0)
--- NOTE | 2024-12-08 14:50 | RADIOLOGY REPORT ---
Procedure: NM NM GI BLOOD LOSS SCAN Exam Date: 12/08/2024 11:34 AM Clinical History: presistent hematochezia Comparison Study: None Nuclear Medicine Gastrointestinal Bleeding Study. Technique: An aliquot of the patient's blood was withdrawn and the red blood cells were labeled with 22.5 mCi of Tc99m. The labeled red blood cells were then reinjected. Sequential planar images of the abdomen w ere obtained at 1 minute intervals for 90 minutes. Findings: There is expected anatomic activity seen in the heart and great vessels of the abdomen. No abnormal focus of activity is seen to suggest a gastrointestinal bleed. Impression: No evidence of gastrointestinal bleeding during the time of this study.
--- NOTE | 2024-12-08 18:39 | PROGRESS NOTE ---
Daily Progress Note Providers to CC ~ Antibiotic Timeout Antibiotic Ordered?: Yes Subjective The patient's white blood cell count has been up trending I changed antibiotics from Rocephin to Zosyn and ordered a CT scan of the abdomen and pelvis with overnight oral contrast prep. the patient dropped her hemoglobin since yesterday post transfusion from 8.3 to 6.7 and another unit of packed red blood cells has been ordered to be transfused. The patient's GI bleeding scan was negative. Objective Vital Signs Date Time Temp Pulse Resp B/P (MAP) Pulse Ox O2 Delivery O2 Flow Rate FiO2 12/08/24 17:27 97.2 78 16 98/69 12/08/24 15:30 94 Room Air 12/06/24 13:28 3.0 Result Diagram: 12/08/24 1412 12/08/24 0604 Gen. No acute distress alert and oriented, jaundiced and scleral icterus appreciated Lungs clear to ascultation bilaterally, no wheezes rales or rhonchi appreciated Heart normal sinus rhythm no murmurs rubs or clicks noted Abdomen soft, moderately distended nontender bowel sounds are normoactive Lower extremities no clubbing cyanosis, nor edema appreciated bilaterally Coagulation Studies Laboratory Tests Test 12/05/24 04:38 Prothrombin Time 21.1 SECONDS (9.0-12.0) H INR International Normalized Ratio 2.2 INR Activated Partial Thromboplast Time 35 SECONDS (22-32) H Coagulation Comments Problem\Assessment\Plan Problems/Diagnosis: (1) Hematochezia # GI bleed with hematemesis and hematochezia- On a Protonix drip and octreotide drip structural steel worker helper is taking the patient for an EGD tomorrow and then if negative may take the patient for colonoscopy the following day. 12/06 status post EGD which demonstrated severe portal hypertensive gastropathy- patient was on b.i.d. Protonix and per gastroenterology the patient could continue to bleed for an additional 4-7 days # upper and possible lower GI bleed- with significant anemia Status post transfusion 2 units packed red blood cells and 2 units of fresh frozen plasma Hemoglobin slowly downtrending currently 8.2 transfuse to keep hemoglobin above 7.0 12/07 The patient has been transfused a total of 5 units of packed red blood cells- a nuclear medicine bleeding scan is ordered for tomorrow 12/08 the patient's hemoglobin downtrended again today and a 60 unit of packed red blood cells has been ordered to be transfused- GI bleeding scan was negative # significant leukocytosis with a left shift 12/08 DC Rocephin and started IV Zosyn, CT scan of the abdomen and pelvis with overnight oral contrast prep is ordered # hepatitis C with cirrhosis- The patient likely has a esophageal varices Her INR is 2.2 The patient was MELD score is 22 # 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 # hypodense liver mass MRI with contrast of the abdomen is ordered 12/07 the patient could not cooperate to obtain the MRI today- we will attempt to obtain the MRI again tomorrow- he may not be able to obtain the MRI unfortunately the patient may require a liver biopsy Date of Service: Dec 08, 2024 Billing Provider: TOÑO LEY DO Common Visit Codes: [id number] INP/OBS CARE(HIGH) TOÑO LEY DO Dec 08, 2024 18:39
[2024-12-08] MEDS: propranolol 10mg tablet PO SCH (20:11)
[2024-12-08] MEDS: diatr meglu/diatrizoate 30ml oral sol.-(3 dose) bottle PO SCH (21:43)
[2024-12-08 22:54] LABS: HEMATOCRIT 23.8 % (35.0-45.0); HEMOGLOBIN 8.2 g/dl (12.0-16.0); MEAN CORPUSCULAR HEMOGLOBIN 30.6 PG (27.0-31.0); MEAN CORPUSCULAR HGB CONC 34.6 g/dL (33.0-36.5); MEAN CORPUSCULAR VOLUME 88.6 FL (78-98); PLATELET COUNT 197 X10'3 (140-440); RED BLOOD COUNT 2.68 X10'6 (4.20-5.60); RED CELL DISTRIBUTION WIDTH 15.7 % (11.5-14.5); WHITE BLOOD COUNT 24.7 X10'3 (4.5-11.0)
[2024-12-09] VITALS (11 sets, daily range): BP systolic 76–104; BP diastolic 37–80; PULSE 68–87; RESP 14–25; TEMP 97.1–97.6; O2SAT 93–100
[2024-12-09] MEDS: normal saline 1000ml 1,000 ML IV ONE (00:39)
[2024-12-09 05:21] LABS: ALANINE AMINOTRANSFERASE 128 U/L (12-78); ALBUMIN 2.4 G/DL (3.4-5.0); ALKALINE PHOSPHATASE 337 IU/L (46-116); ANION GAP 15 (8-16); BILIRUBIN,TOTAL 14.3 MG/DL (0.1-1.0); BLOOD UREA NITROGEN 47 MG/DL (7-18); BUN/CREATININE RATIO 39.5 (10.0-20.0); CALCIUM 8.5 MG/DL (8.5-10.1); CHLORIDE 104 MMOL/L (99-107); CREATININE 1.19 MG/DL (0.40-0.90); GLUCOSE 69 MG/DL (70-104); SODIUM 136 MMOL/L (135-145); TOTAL CARBON DIOXIDE 17.2 MMOL/L (24-32); eCRCL 53 ML/MIN; eGFR 47 ML/MIN
[2024-12-09 05:23] LABS: ALBUMIN/GLOBULIN RATIO 1.1 (1.1-1.5); ASPARTATE AMINO TRANSFERASE 305 U/L (10-37); PHOSPHORUS 2.9 MG/DL (2.3-4.5); POTASSIUM 4.2 MMOL/L (3.5-5.1); TOTAL PROTEIN 4.6 G/DL (6.4-8.2)
[2024-12-09 05:45] LABS: BASOPHILS % (AUTO) 0.2 % (0-1); EOSINOPHILS # (AUTO) 0.1 X10'3 (0-0.9); EOSINOPHILS % (AUTO) 0.2 % (0-6); HEMATOCRIT 23.8 % (35.0-45.0); HEMOGLOBIN 8.2 g/dl (12.0-16.0); LYMPHOCYTES # (AUTO) 1.7 X10'3 (1.1-4.8); LYMPHOCYTES % (AUTO) 7.5 % (21-51); MEAN CORPUSCULAR HEMOGLOBIN 30.5 PG (27.0-31.0); MEAN CORPUSCULAR HGB CONC 34.3 g/dL (33.0-36.5); MEAN CORPUSCULAR VOLUME 89.2 FL (78-98); MEAN PLATELET VOLUME 6.6 FL (7.4-10.4); MONOCYTES # (AUTO) 1.8 X10'3 (0-0.9); MONOCYTES % (AUTO) 7.9 % (2-12); NEUTROPHILS # (AUTO) 19.2 X10'3 (1.8-7.7); NEUTROPHILS % (AUTO) 84.2 % (42-75); PLATELET COUNT 183 X10'3 (140-440); RED BLOOD COUNT 2.67 X10'6 (4.20-5.60); WHITE BLOOD COUNT 22.8 X10'3 (4.5-11.0)
[2024-12-09 06:25] LABS: PLATELET ESTIMATE NORMAL; TOTAL CELLS COUNTED 100
[2024-12-09 06:26] LABS: ANISOCYTOSIS 1+
[2024-12-09] MEDS ORDERED: iohexol 300mg/ml 100ml inj. ONE (10:12)
--- NOTE | 2024-12-09 11:48 | RADIOLOGY REPORT ---
CLINICAL INFORMATION: 59 years old, Female; sepsis. TECHNIQUE: Axial CT images of the abdomen and pelvis were obtained after the uneventful administrati on of 100 mL Omnipaque 300 IV contrast. The patient also ingested oral contrast prior to the exam. Co mirna and sagittal reformatted images were obtained, reviewed, and stored. All CT scans at this [facility] are performed using dose modulation techniques as appropriate to a performed exam includi ng the following: Automated exposure control was utilized; adjustment of the MA and/or KV according t o patient size; and use of iterative reconstruction technique. CTDIvol = 30.42 mGy DLP = 1656.38 mGy-cm COMPARISON: CTA of the abdomen and pelvis dated 12/05/2024. FINDINGS: Lung bases: Partially visualized small bilateral pleural effusions, left greater than right with over lying atelectasis. Respiratory motion artifact limits evaluation of the lung bases. Moderate hiatal h ernia. Liver: Abnormal heterogeneous enhancement of the liver secondary to portal vein thrombosis, with nupur ling defects in the main portal vein and right and left portal veins, similar to the recent CTA exam. The main portal vein filling defect extends adjacent to the confluence of the splenic vein and SMV. SMV and splenic vein are patent. Liver is poorly evaluated due to the heterogeneous enhancement assoc iated with the portal vein thrombosis. Slightly more focal areas of hypo enhancement in the left hepa tic lobe segment 2 measuring up to 3.4 cm, for which neoplasm, malignancy can not be excluded. Nodula r contour of the liver and relative enlargement of the left hepatic lobe, which may be seen with cirr hosis in the appropriate clinical setting. Biliary: Small calcified gallstones in the gallbladder. Spleen: Unremarkable. Pancreas: Moderately atrophic. Adrenal glands: Unremarkable. No mass. Kidneys: No hydronephrosis or mass. Aorta/Vascular: Dense atherosclerotic calcification. No abdominal aortic aneurysm. Retroperitoneum: No mass or lymphadenopathy. Bowel/mesentery: No small bowel obstruction. Appendix is visualized and appears unremarkable. Areas of colonic wall thickening may be due to 3rd spacing of fluid. Moderate ascites in the abdomen and pe lvis. Pelvic organs: Grossly unremarkable. Bladder: Unremarkable. No mass. Abdominal wall: Diffuse anasarca. Bones: No acute fracture or focal intraosseous lesion. IMPRESSION: 1. Portal vein thrombosis again visualized, similar in appearance compared to the prior CTA exam. 2. Cirrhotic liver morphology. 3. Moderate ascites. 4. Anasarca. 5. Heterogeneous enhancement of the liver due to the portal vein thrombosis. Slightly more focal area of hypo enhancement in the left hepatic lobe segment 2, may also be due to the portal vein thrombosi s, although neoplasm, including malignancy can not be excluded. Correlate with clinical findings. MRI liver mass protocol could be considered to further characterize if clinically indicated. 6. Cholelithiasis. 7. Bilateral pleural effusions. 8. Additional findings as described above.
[2024-12-09 14:42] LABS: HEMATOCRIT 24.3 % (35.0-45.0); HEMOGLOBIN 8.3 g/dl (12.0-16.0); MEAN CORPUSCULAR HEMOGLOBIN 30.4 PG (27.0-31.0); MEAN CORPUSCULAR VOLUME 89.4 FL (78-98); MEAN PLATELET VOLUME 6.7 FL (7.4-10.4); PLATELET COUNT 186 X10'3 (140-440); RED BLOOD COUNT 2.72 X10'6 (4.20-5.60); RED CELL DISTRIBUTION WIDTH 15.7 % (11.5-14.5); WHITE BLOOD COUNT 23.9 X10'3 (4.5-11.0)
--- NOTE | 2024-12-09 15:16 | PROGRESS NOTE- Residence ---
Progress Note - Resident Providers to CC Resident Creating Document: HERSON RAO RES CC: HEIDE WILHELM MD ~ Antibiotic Timeout Antibiotic Ordered?: No Subjective Was examined at bedside, no new complaints or overnight acute events. Objective Vital Signs Date Time Temp Pulse Resp B/P (MAP) Pulse Ox O2 Delivery O2 Flow Rate FiO2 12/09/24 09:17 18 12/09/24 09:00 79 98/41 (60) 83 94/65 (75) 82 76/48 (57) 12/09/24 08:00 95 Room Air 12/09/24 06:00 97.6 12/06/24 13:28 3.0 Result Diagram: 12/09/24 1408 12/09/24 0450 General: Elderly, AOX4 HEENT: PERRLA, no icterus, pallor, lymphadenopathy, carotid bruit Respiratory system: Bilateral vesicular breath sounds heard, no adventitious breath sounds CVS: S1-S2 heard, no murmurs/rubs/gallop GI: distended, ascites present no tenderness, no organomegaly, bowel sounds- heard Neuro: No focal neurological deficits present Extremities: No edema cyanosis clubbing/deformities Skin: Warm and dry Coagulation Studies Laboratory Tests Test 12/05/24 04:38 Prothrombin Time 21.1 SECONDS (9.0-12.0) H INR International Normalized Ratio 2.2 INR Activated Partial Thromboplast Time 35 SECONDS (22-32) H Coagulation Comments Assessment Assessment 59 F with history of hep C status post treatment, cirrhosis, COPD came as a transfer from [facility] for further evaluation and management of GI bleed. GI is consulted for the management of upper and Lower GI bleed. Patient was currently stable with H&H being stable. Plan Plan Acxute decompemsated Liver cirrhosis Portal Hypertensive gastropathy HCV cirrhosis- MELD of 20 Portal vein thrombosis Continue IV Protonix EGD revealed portal hypertensive gastropathy Possibly needs diagnostic therapeutic paracentesis Continue SBP prophylaxis with Rocephin -needs further evaluation with MRI abdomen to further characterize the liver lesion Hypochromic Microcytic Anemia 2/2 acute blood loss Coagulopathy secondary to liver disease -H&H stable Consider iron supplementation Code Status: Full Analgesia/sedation: [place] Line/tube: PIV GI prophylaxis: Protonix DVT prophylaxis: SCD Prognosis: Guarded Disposition: As the patient was stable, patient was being signed off. Please consult if required. Herson Rao MD Internal Medicine, PGY 1 Date of Service: Dec 09, 2024 Billing Provider: HEIDE WILHELM MD,HERSON, RES Dec 09, 2024 15:16
[2024-12-09] MEDS: midodrine 5mg tablet PO SCH (16:25)
--- NOTE | 2024-12-09 19:31 | PROGRESS NOTE ---
Daily Progress Note Providers to CC ~ Antibiotic Timeout Antibiotic Ordered?: Yes Subjective The patient's liver function continues to worsened today however hemoglobin has finally stabilized- the CT scan of the abdomen and pelvis oral contrast prep did not demonstrate any angy abscesses fluid collections other than generalized ascites. The patient was confused today and difficult to understand her speech she does have a normal and ammonia level however the patient was mother and [id number] were at bedside and brought up if the patient is at the place where she may need to be on comfort care/ hospice care- the patient did remember that the last time she has a liver biopsy was appears 10 years ago at that time she she had cirrhosis but it was not severe cirrhosis that was when she had received hepatitis-C treatment however the patient was positive for hepatitis-C antibody. Objective Vital Signs Date Time Temp Pulse Resp B/P (MAP) Pulse Ox O2 Delivery O2 Flow Rate FiO2 12/09/24 15:00 97.6 78 20 104/41 (62) 96 Room Air 12/06/24 13:28 3.0 Result Diagram: 12/09/24 1408 12/09/24 0450 Gen. No acute distress alert and oriented, jaundiced and scleral icterus appreciated Lungs clear to ascultation bilaterally, no wheezes rales or rhonchi appreciated Heart normal sinus rhythm no murmurs rubs or clicks noted Abdomen soft, moderately distended nontender bowel sounds are normoactive Lower extremities no clubbing cyanosis, nor edema appreciated bilaterally Coagulation Studies Laboratory Tests Test 12/05/24 04:38 Prothrombin Time 21.1 SECONDS (9.0-12.0) H INR International Normalized Ratio 2.2 INR Activated Partial Thromboplast Time 35 SECONDS (22-32) H Coagulation Comments Problem\Assessment\Plan Problems/Diagnosis: (1) Hematochezia The patient was transferred from [facility] with a angy GI bleed and had significant hematochezia which has since slow down the patient had a EGD with Dr. Queen and discovered severe portal hypertensive gastropathy- the patient has been transfused a total of 6 units of packed red blood cells and one fresh frozen plasma pack - since yesterday afternoon the patient was hemoglobin has stabilized. I did order a GI bleeding scan which was negative for active bleeding. There is a hypodense lesion found on her initial CAT scan at [facility] and we attempted to obtain an MRI of the abdomen and pelvis however the patient could not cooperate enough to complete the study. The patient was liver function is worsening daily- the patient is mother and [id number] were at bedside when I evaluated the patient today they did ask if the patient is at the point where she needs hospice care. 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 Physical therapy worked with the patient today and recommending rehab # GI bleed with hematemesis and hematochezia- On a Protonix drip and octreotide drip vacation sales advisor is taking the patient for an EGD tomorrow and then if negative may take the patient for colonoscopy the following day. 12/06 status post EGD which demonstrated severe portal hypertensive gastropathy- patient was on b.i.d. Protonix and per gastroenterology the patient could continue to bleed for an additional 4-7 days # upper and possible lower GI bleed- with significant anemia Status post transfusion 2 units packed red blood cells and 2 units of fresh frozen plasma Hemoglobin slowly downtrending currently 8.2 transfuse to keep hemoglobin above 7.0 12/07 The patient has been transfused a total of 5 units of packed red blood cells- a nuclear medicine bleeding scan is ordered for tomorrow 12/08 the patient's hemoglobin downtrended again today and a 6 units of packed red blood cells has been ordered to be transfused- GI bleeding scan was negative 12/09 hemoglobin stable today # significant leukocytosis with a left shift 12/08 DC Rocephin and started IV Zosyn, CT scan of the abdomen and pelvis with overnight oral contrast prep is ordered 12/09 no abscess or fluid collection was appreciated # hepatitis C with cirrhosis- The patient likely has a esophageal varices Her INR is 2.2 The patient was MELD score is 22 12/09 ordered daily INR liver function continues to worsen daily # 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 # hypodense liver mass MRI with contrast of the abdomen is ordered 12/07 the patient could not cooperate to obtain the MRI today- we will attempt to obtain the MRI again tomorrow- he may not be able to obtain the MRI unfortunately the patient may require a liver biopsy # encephalopathy likely metabolic- Serum ammonia level is normal rechecked daily serum ammonia level Disposition: Patient was extremely weak and per physical therapy will require rehab placement 12/09 the patient was mother and [id number] inquired today if the patient needs hospice care- this may be where we are heading. I could not give a definitive answered today. Date of Service: Dec 09, 2024 Billing Provider: TOÑO LEY DO Common Visit Codes: [id number] INP/OBS CARE(HIGH) TOÑO LEY DO Dec 09, 2024 19:31
[2024-12-10] VITALS (11 sets, daily range): BP systolic 80–134; BP diastolic 43–111; PULSE 72–101; RESP 11–24; TEMP 97.3–98.3; O2SAT 92–98
[2024-12-10 06:39] LABS: HEMOGLOBIN 7.3 g/dl (12.0-16.0); MEAN CORPUSCULAR HEMOGLOBIN 30.8 PG (27.0-31.0); MEAN PLATELET VOLUME 6.7 FL (7.4-10.4); MONOCYTES # (AUTO) 1.2 X10'3 (0-0.9); RED BLOOD COUNT 2.37 X10'6 (4.20-5.60); WHITE BLOOD COUNT 20.4 X10'3 (4.5-11.0)
[2024-12-10 06:40] LABS: BASOPHILS # (AUTO) 0.1 X10'3 (0-0.2); BASOPHILS % (AUTO) 0.2 % (0-1); EOSINOPHILS % (AUTO) 0.2 % (0-6); LYMPHOCYTES # (AUTO) 2.6 X10'3 (1.1-4.8); LYMPHOCYTES % (AUTO) 12.7 % (21-51); MEAN CORPUSCULAR HGB CONC 33.4 g/dL (33.0-36.5); MEAN CORPUSCULAR VOLUME 92.3 FL (78-98); NEUTROPHILS # (AUTO) 16.5 X10'3 (1.8-7.7); NEUTROPHILS % (AUTO) 80.9 % (42-75); PLATELET COUNT 153 X10'3 (140-440); RED CELL DISTRIBUTION WIDTH 16.4 % (11.5-14.5)
[2024-12-10 06:44] LABS: INR 1.1 INR; PROTHROMBIN TIME 11.3 SECONDS (9.0-12.0)
[2024-12-10 06:56] LABS: HEMATOCRIT 21.9 % (35.0-45.0)
[2024-12-10 07:07] LABS: ALANINE AMINOTRANSFERASE 141 U/L (12-78); ALBUMIN 2.2 G/DL (3.4-5.0); ALKALINE PHOSPHATASE 412 IU/L (46-116); ANION GAP 16 (8-16); BILIRUBIN,TOTAL 16.6 MG/DL (0.1-1.0); BLOOD UREA NITROGEN 57 MG/DL (7-18); CALCIUM 8.5 MG/DL (8.5-10.1); CHLORIDE 104 MMOL/L (99-107); MAGNESIUM 2.1 MG/DL (1.5-2.4); SODIUM 135 MMOL/L (135-145); THYROID STIMULATING HORMONE 1.81 ulU/ml (0.34-4.50); TOTAL CARBON DIOXIDE 15.4 MMOL/L (24-32)
[2024-12-10 07:31] LABS: ASPARTATE AMINO TRANSFERASE 325 U/L (10-37); BUN/CREATININE RATIO 39.6 (10.0-20.0); CREATININE 1.44 MG/DL (0.40-0.90); GLUCOSE 79 MG/DL (70-104); PHOSPHORUS 3.8 MG/DL (2.3-4.5); POTASSIUM 3.6 MMOL/L (3.5-5.1); TOTAL PROTEIN 4.5 G/DL (6.4-8.2); eCRCL 43 ML/MIN; eGFR 38 ML/MIN
[2024-12-10] MEDS: mag hydrox/Alum hydrox/simeth 30ml oral suspension PO PRN (08:40)
[2024-12-10 08:51] LABS: NUCLEATED RED BLOOD CELLS 6 /100WBC (0-0); TOTAL CELLS COUNTED 100
[2024-12-10 08:53] LABS: PLATELET ESTIMATE NORMAL
[2024-12-10 08:54] LABS: ANISOCYTOSIS 2+; HYPOCHROMASIA 1+
[2024-12-10 08:55] LABS: POLYCHROMASIA 2+
[2024-12-10] MEDS: furosemide 20 MG/2 ML vial IV ONE (11:41)
[2024-12-10 12:17] LABS: INR 1.1 INR; PROTHROMBIN TIME 11.4 SECONDS (9.0-12.0)
[2024-12-10] MEDS: albuterol 2.5 MG/3 ML nebule NEB SCH (12:53)
--- NOTE | 2024-12-10 14:00 | PATHOLOGY REPORT ---
[facility] [address] [place] [address] SURGICAL PATHOLOGY REPORT CaseNumber: [id number] Surgeon:Sujatha Queen M.D. CLINICAL INFORMATION CLINICAL INFORMATION: Hematemesis/melena. DIAGNOSIS DIAGNOSIS: STOMACH, ANTRUM; BIOPSY - MINIMAL CHRONIC GASTRITIS INCLUDING MILD ATROPHY. - IMMUNOHISTOCHEMICAL STAIN NEGATIVE FOR HELICOBACTER PYLORI. MICROSCOPIC DESCRIPTION MICROSCOPIC DESCRIPTION: Microscopic examination is performed on one H&E stained slide. Present is ga stric antral mucosa with focal minimal chronic inflammation within the lamina propria and mild atroph y. There is no evidence of ulcer, dysplasia, or malignancy. A histochemical stain for intestinal meta plasia (Alcian blue) is completed and is negative. An immunohistochemical stain for Helicobacter pylo ri is completed and is negative. GROSS DESCRIPTION GROSS DESCRIPTION: Received in a container of formalin labeled with the patient's name, number, and " antrum BX" is a 0.5 x 0.1 x 0.1 cm piece of brown tissue. The specimen is entirely submitted as A1. The time at which the specimen was removed was 1327. The time at which the specimen was placed in formal in was 1328. Electronically signed by: Son Barrett D.O. 12/10/2024 1:28:00 PM
[2024-12-10] MEDS: gabapentin 100mg capsule PO PRN (17:34)
--- NOTE | 2024-12-10 18:47 | PROGRESS NOTE ---
Daily Progress Note Providers to CC ~ Antibiotic Timeout Antibiotic Ordered?: No Subjective Patient is seen in her room she is chronically ill-appearing cooperated during physical exam. Diet advanced to full liquid diet. 93% on room air. Objective Vital Signs Date Time Temp Pulse Resp B/P (MAP) Pulse Ox O2 Delivery O2 Flow Rate FiO2 12/10/24 17:35 20 12/10/24 15:00 98.3 83 83/49 (60) 92 Room Air 12/06/24 13:28 3.0 Result Diagram: 12/10/24 0553 12/10/24 0553 General-patient not in any acute distress, chronically ill-appearing, mildly lethargic, appear pale HEENT-atraumatic normocephalic, neck supple without elevated JVD, no thyromegaly or carotid bruit. No lymphadenopathy bilaterally. Eyes-no icterus or pallor seen in eyes Chest-decreased breath sounds to auscultation bilaterally, breathing nonlabored no tachypnea, bilateral wheezing present , no crackles. Heart-S1-S2 normal, regular heart rate no murmur Abdomen bowel sounds positive on auscultation, soft nondistended nontender no guarding, no rigidity Skin no active skin rash Neurology-grossly intact, nonfocal , mildly lethargic but responded to verbal commands and cooperated during physical exam Extremity- 1 plus pedal edema able to move all 4 extremities Psychiatry - patient is not confused or agitated cooperated during physical examination Coagulation Studies Laboratory Tests Test 12/05/24 04:38 12/10/24 12:00 Activated Partial Thromboplast Time 35 SECONDS (22-32) H Prothrombin Time 11.4 SECONDS (9.0-12.0) INR International Normalized Ratio 1.1 INR Coagulation Comments Problem\Assessment\Plan Problems/Diagnosis: (1) Hematochezia The patient was transferred from [facility] with a angy GI bleed and had significant hematochezia which has since slow down the patient had a EGD with Dr. Queen and discovered severe portal hypertensive gastropathy- the patient has been transfused a total of 6 units of packed red blood cells and one fresh frozen plasma pack - since yesterday afternoon the patient was hemoglobin has stabilized. I did order a GI bleeding scan which was negative for active bleeding. There is a hypodense lesion found on her initial CAT scan at [facility] and we attempted to obtain an MRI of the abdomen and pelvis however the patient could not cooperate enough to complete the study. The patient was liver function is worsening daily- the patient is mother and [id number] were at bedside when I evaluated the patient today they did ask if the patient is at the point where she needs hospice care. 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 Physical therapy worked with the patient today and recommending rehab # GI bleed with hematemesis and hematochezia- On a Protonix drip and octreotide drip manager purchasing is taking the patient for an EGD tomorrow and then if negative may take the patient for colonoscopy the following day. 12/06 status post EGD which demonstrated severe portal hypertensive gastropathy- patient was on b.i.d. Protonix and per gastroenterology the patient could continue to bleed for an additional 4-7 days # upper and possible lower GI bleed- with significant anemia Status post transfusion 2 units packed red blood cells and 2 units of fresh frozen plasma Hemoglobin slowly downtrending currently 8.2 transfuse to keep hemoglobin above 7.0 12/07 The patient has been transfused a total of 5 units of packed red blood cells- a nuclear medicine bleeding scan is ordered for tomorrow 12/08 the patient's hemoglobin downtrended again today and a 6 units of packed red blood cells has been ordered to be transfused- GI bleeding scan was negative 12/09 hemoglobin stable today # significant leukocytosis with a left shift 12/08 DC Rocephin and started IV Zosyn, CT scan of the abdomen and pelvis with overnight oral contrast prep is ordered 12/09 no abscess or fluid collection was appreciated # hepatitis C with cirrhosis- The patient likely has a esophageal varices Her INR is 2.2 The patient was MELD score is 22 12/09 ordered daily INR liver function continues to worsen daily # 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 # hypodense liver mass MRI with contrast of the abdomen is ordered 12/07 the patient could not cooperate to obtain the MRI today- we will attempt to obtain the MRI again tomorrow- he may not be able to obtain the MRI unfortunately the patient may require a liver biopsy # encephalopathy likely metabolic- Serum ammonia level is normal rechecked daily serum ammonia level Disposition: Patient is weak and per physical therapy will require rehab placement. Insurance Processing Clerk Cecilia working on discharge plan to [facility] rehab authorization is pending Date of Service: Dec 10, 2024 Billing Provider: MITCH GAMBOA MD Common Visit Codes: [id number] INP/OBS CARE(HIGH) MITCH GAMBOA MD Dec 10, 2024 18:47
[2024-12-10] MEDS ORDERED: CefTRIAXone 2gm/D5W 50ml BAG 50 ML IV SCH (18:55)
[2024-12-10] MEDS: pantoprazole 40mg Tablet.DR PO SCH (20:24)
[2024-12-11] VITALS (22 sets, daily range): BP systolic 74–106; BP diastolic 38–58; PULSE 74–99; RESP 14–22; TEMP 96.6–98.7; O2SAT 90–98
[2024-12-11 06:16] LABS: INR 1.1 INR; PROTHROMBIN TIME 11.4 SECONDS (9.0-12.0)
[2024-12-11] MEDS: CefTRIAXone 2gm/D5W 50ml BAG 50 ML IV SCH (08:02)
[2024-12-11] MEDS: BUPROPION HCL 150MG XL 24 HR 150 MG TAB PO SCH (08:02)
[2024-12-11 11:38] LABS: ANION GAP 15 (8-16); BLOOD UREA NITROGEN 66 MG/DL (7-18); CHLORIDE 102 MMOL/L (99-107); CREATININE 2.41 MG/DL (0.40-0.90); SODIUM 132 MMOL/L (135-145); TOTAL CARBON DIOXIDE 15.2 MMOL/L (24-32)
[2024-12-11 11:39] LABS: ALANINE AMINOTRANSFERASE 168 U/L (12-78); ALBUMIN 2.1 G/DL (3.4-5.0); ALBUMIN/GLOBULIN RATIO 0.9 (1.1-1.5); ALKALINE PHOSPHATASE 460 IU/L (46-116); ASPARTATE AMINO TRANSFERASE 351 U/L (10-37); BILIRUBIN,TOTAL 18.7 MG/DL (0.1-1.0); BUN/CREATININE RATIO 27.4 (10.0-20.0); CALCIUM 8.3 MG/DL (8.5-10.1); GLUCOSE 90 MG/DL (70-104); TOTAL PROTEIN 4.4 G/DL (6.4-8.2); eCRCL 26 ML/MIN; eGFR 21 ML/MIN
[2024-12-11 11:46] LABS: BASOPHILS # (AUTO) 0.1 X10'3 (0-0.2); EOSINOPHILS # (AUTO) 0.2 X10'3 (0-0.9); EOSINOPHILS % (AUTO) 0.8 % (0-6)
[2024-12-11 11:48] LABS: BASOPHILS % (AUTO) 0.2 % (0-1); LYMPHOCYTES # (AUTO) 3.9 X10'3 (1.1-4.8); LYMPHOCYTES % (AUTO) 17.7 % (21-51); MEAN CORPUSCULAR HEMOGLOBIN 31.8 PG (27.0-31.0); MEAN CORPUSCULAR VOLUME 99.4 FL (78-98); MEAN PLATELET VOLUME 7.2 FL (7.4-10.4); MONOCYTES # (AUTO) 1.1 X10'3 (0-0.9); MONOCYTES % (AUTO) 5.1 % (2-12); NEUTROPHILS # (AUTO) 16.6 X10'3 (1.8-7.7); NEUTROPHILS % (AUTO) 76.2 % (42-75); PLATELET COUNT 158 X10'3 (140-440); RED BLOOD COUNT 2.09 X10'6 (4.20-5.60); RED CELL DISTRIBUTION WIDTH 17.1 % (11.5-14.5); WHITE BLOOD COUNT 21.8 X10'3 (4.5-11.0)
[2024-12-11 12:03] LABS: HEMATOCRIT 20.7 % (35.0-45.0); HEMOGLOBIN 6.6 g/dl (12.0-16.0)
[2024-12-11 12:25] LABS: NUCLEATED RED BLOOD CELLS 1 /100WBC (0-0); TOTAL CELLS COUNTED 100
[2024-12-11 12:26] LABS: ANISOCYTOSIS 1+; PLATELET ESTIMATE NORMAL
[2024-12-11 12:27] LABS: POLYCHROMASIA 2+
[2024-12-11] MEDS: lactose-reduced food (Ensure Enlive) - 237ml bottle PO SCH (18:00)
--- NOTE | 2024-12-11 18:30 | PROGRESS NOTE ---
Daily Progress Note Providers to CC ~ Antibiotic Timeout Antibiotic Ordered?: Yes Subjective Patient was seen in her room, waiting to go to [facility] rehab. Appear chronically ill. Hemoglobin and hematocrit low 1 unit of packed RBC transfusion done today Objective Vital Signs Date Time Temp Pulse Resp B/P (MAP) Pulse Ox O2 Delivery O2 Flow Rate FiO2 12/11/24 16:00 97.6 82 15 91/50 12/11/24 15:00 98 Nasal Cannula 3.0 12/11/24 14:34 N/A Result Diagram: 12/11/24 0550 12/11/24 0550 General-patient not in any acute distress, chronically ill-appearing, mildly lethargic, appear pale HEENT-atraumatic normocephalic, neck supple without elevated JVD, no thyromegaly or carotid bruit. No lymphadenopathy bilaterally. Eyes-no icterus or pallor seen in eyes Chest-decreased breath sounds to auscultation bilaterally, breathing nonlabored no tachypnea, bilateral wheezing present , no crackles. Heart-S1-S2 normal, regular heart rate no murmur Abdomen bowel sounds positive on auscultation, soft nondistended nontender no guarding, no rigidity Skin no active skin rash Neurology-grossly intact, nonfocal , mildly lethargic but responded to verbal commands and cooperated during physical exam Extremity- 1 plus pedal edema able to move all 4 extremities Psychiatry - patient is not confused or agitated cooperated during physical examination Coagulation Studies Laboratory Tests Test 12/05/24 04:38 12/11/24 05:50 Activated Partial Thromboplast Time 35 SECONDS (22-32) H Prothrombin Time 11.4 SECONDS (9.0-12.0) INR International Normalized Ratio 1.1 INR Coagulation Comments Problem\Assessment\Plan Problems/Diagnosis: (1) Hematochezia The patient was transferred from [facility] with a angy GI bleed and had significant hematochezia which has since slow down the patient had a EGD with Dr. Queen and discovered severe portal hypertensive gastropathy- the patient has been transfused a total of 6 units of packed red blood cells and one fresh frozen plasma pack - since yesterday afternoon the patient was hemoglobin has stabilized. I did order a GI bleeding scan which was negative for active bleeding. There is a hypodense lesion found on her initial CAT scan at [facility] and we attempted to obtain an MRI of the abdomen and pelvis however the patient could not cooperate enough to complete the study. The patient was liver function is worsening daily- the patient is mother and [id number] were at bedside when I evaluated the patient today they did ask if the patient is at the point where she needs hospice care. 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 Physical therapy worked with the patient today and recommending rehab # GI bleed with hematemesis and hematochezia- On a Protonix drip and octreotide drip clamp operator is taking the patient for an EGD tomorrow and then if negative may take the patient for colonoscopy the following day. 12/06 status post EGD which demonstrated severe portal hypertensive gastropathy- patient was on b.i.d. Protonix and per gastroenterology the patient could continue to bleed for an additional 4-7 days # upper and possible lower GI bleed- with significant anemia Status post transfusion 2 units packed red blood cells and 2 units of fresh frozen plasma Hemoglobin slowly downtrending currently 8.2 transfuse to keep hemoglobin above 7.0 12/07 The patient has been transfused a total of 5 units of packed red blood cells- a nuclear medicine bleeding scan is ordered for tomorrow 12/08 the patient's hemoglobin downtrended again today and a 6 units of packed red blood cells has been ordered to be transfused- GI bleeding scan was negative 12/09 hemoglobin stable today # significant leukocytosis with a left shift 12/08 DC Rocephin and started IV Zosyn, CT scan of the abdomen and pelvis with overnight oral contrast prep is ordered 12/09 no abscess or fluid collection was appreciated # hepatitis C with cirrhosis- The patient likely has a esophageal varices Her INR is 2.2 The patient was MELD score is 22 12/09 ordered daily INR liver function continues to worsen daily # 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 # hypodense liver mass MRI with contrast of the abdomen is ordered 12/07 the patient could not cooperate to obtain the MRI today- we will attempt to obtain the MRI again tomorrow- he may not be able to obtain the MRI unfortunately the patient may require a liver biopsy # encephalopathy likely metabolic- Serum ammonia level is normal rechecked daily serum ammonia level Disposition: Patient is weak and per physical therapy will require rehab placement. Sewer Separation Designer Cecilia working on discharge plan to [facility] rehab authorization is pending Date of Service: Dec 11, 2024 Billing Provider: MITCH GAMBOA MD Common Visit Codes: [id number] INP/OBS CARE(HIGH) MITCH GAMBOA MD Dec 11, 2024 18:30
[2024-12-11 19:43] LABS: HEMOGLOBIN 7.3 g/dl (12.0-16.0); MEAN CORPUSCULAR HGB CONC 33.6 g/dL (33.0-36.5); MEAN CORPUSCULAR VOLUME 95.2 FL (78-98); MEAN PLATELET VOLUME 6.9 FL (7.4-10.4); PLATELET COUNT 133 X10'3 (140-440); RED BLOOD COUNT 2.27 X10'6 (4.20-5.60); RED CELL DISTRIBUTION WIDTH 16.6 % (11.5-14.5); WHITE BLOOD COUNT 19.9 X10'3 (4.5-11.0)
[2024-12-11 19:51] LABS: HEMATOCRIT 21.6 % (35.0-45.0)
[2024-12-12] VITALS (11 sets, daily range): BP systolic 88–90; BP diastolic 39–60; PULSE 68–94; RESP 14–24; TEMP 97.2–98.3; O2SAT 92–99
[2024-12-12 06:45] LABS: INR 1.1 INR; PROTHROMBIN TIME 11.2 SECONDS (9.0-12.0)
--- NOTE | 2024-12-12 19:05 | DISCHARGE SUMMARY ---
Discharge Summary Providers to CC ~ Discharge Summary Admission Diagnosis: GI BLEED Hospital Course DATE OF ADMISSION: December 05, 2024 DATE OF DISCHARGE: December 12, 2024 CBC testing done on December 11, 2024 WBC 19.9 hemoglobin 7.3, hematocrit 21.6 platelet count 133. BNP 171. CMP done on December 11, 2024 sodium 132 potassium 4.0 creatinine 2.41, GFR 21 elevated liver enzymes total bilirubin 18.7 AST 351 ALT 168 alkaline phosphatase 460 procalcitonin 1.52, TSH 1.81. Blood cultures negative since five days Discharge Diagnosis\Comment: GI bleed with hematemesis and hematochezia due to severe portal hypertensive gastropathy, moderate anemia, significant leukocytosis with a left shift, hepatitis C with cirrhosis, hypodense liver mass, encephalopathy likely metabolic, portal vein thrombosis with cavernous transformation and occluded [facility] Operations\Procedures: None Consultants: Dr Shayla Norman, GI specialist Complications: None Condition on DC: Stable for transfer Discharge Summary: The patient was transferred from [facility] with a angy GI bleed and had significant hematochezia which has since slow down the patient had a EGD with Dr. Queen and discovered severe portal hypertensive gastropathy- the patient has been transfused a total of 6 units of packed red blood cells and one fresh frozen plasma pack - since yesterday afternoon the patient was hemoglobin has stabilized. I did order a GI bleeding scan which was negative for active bleeding. There is a hypodense lesion found on her initial CAT scan at [facility] and we attempted to obtain an MRI of the abdomen and pelvis however the patient could not cooperate enough to complete the study. The patient was liver function is worsening daily- the patient is mother and [id number] were at bedside when I evaluated the patient today they did ask if the patient is at the point where she needs hospice care but she was full code throughout the hospitalization. 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 Physical therapy worked with the patient today and recommending rehab # GI bleed with hematemesis and hematochezia- On a Protonix drip and octreotide drip aircraft captain is taking the patient for an EGD tomorrow and then if negative may take the patient for colonoscopy the following day. 12/06 status post EGD which demonstrated severe portal hypertensive gastropathy- patient was on b.i.d. Protonix and per gastroenterology the patient could continue to bleed for an additional 4-7 days # upper and possible lower GI bleed- with significant anemia Status post transfusion 2 units packed red blood cells and 2 units of fresh frozen plasma Hemoglobin slowly downtrending currently 8.2 transfuse to keep hemoglobin above 7.0 12/07 The patient has been transfused a total of 5 units of packed red blood c ells- a nuclear medicine bleeding scan is ordered for tomorrow 12/08 the patient's hemoglobin downtrended again today and a 6 units of packed red blood cells has been ordered to be transfused- GI bleeding scan was negative 12/09 hemoglobin stable today # significant leukocytosis with a left shift 12/08 DC Rocephin and started IV Zosyn, CT scan of the abdomen and pelvis with overnight oral contrast prep is ordered 12/09 no abscess or fluid collection was appreciated # hepatitis C with cirrhosis- The patient likely has a esophageal varices Her INR is 2.2 The patient was MELD score is 22 12/09 ordered daily INR liver function continues to worsen daily # 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 # hypodense liver mass MRI with contrast of the abdomen is ordered 12/07 the patient could not cooperate to obtain the MRI today- we will attempt to obtain the MRI again tomorrow- he may not be able to obtain the MRI unfortunately the patient may require a liver biopsy # encephalopathy likely metabolic- Serum ammonia level is normal rechecked daily serum ammonia level Patient is afebrile getting discharged to [facility] rehab today. Patient is chronically ill with multiple comorbidities. Patient is seen and examined on the day of discharge. Medication reconciliation done for rehab facility. Long- term prognosis poor General-patient not in any acute distress, chronically ill-appearing, mildly lethargic, appear pale HEENT-atraumatic normocephalic, neck supple without elevated JVD, no thyromegaly or carotid bruit. No lymphadenopathy bilaterally. Eyes-no icterus or pallor seen in eyes Chest-decreased breath sounds to auscultation bilaterally, breathing nonlabored no tachypnea, bilateral wheezing present , no crackles. Heart-S1-S2 normal, regular heart rate no murmur Abdomen bowel sounds positive on auscultation, soft nondistended nontender no guarding, no rigidity Skin no active skin rash Neurology-grossly intact, nonfocal , mildly lethargic but responded to verbal commands and cooperated during physical exam Extremity- 1 plus pedal edema able to move all 4 extremities Psychiatry - patient is not confused or agitated cooperated during physical examination *Problems/Diagnosis: (1) Hematochezia Status: Acute Total Time Spent on D/C: > 30 Minutes Date of Service: Dec 12, 2024 Billing Provider: MITCH GAMBOA MD Common Visit Codes: 47794-YCO/OBS DISCH DAY >30min MITCH GAMBOA MD Dec 12, 2024 18:55
[2024-12-12] MEDS ORDERED: propranolol 10mg tablet PO SCH (20:00)
== END 2024-12-12 17:43 | DRG 253 ==
LOC: EDBD 03:42 → ER 03:42 → ED HOLD 04:23 → CICU 2S 07:00 → PCU 3S 12-07 11:13
PROVIDERS: ADMIT Internal Medicine; ATTEND Internal Medicine
PROC: 30233K1 Transfusion of Nonautologous Frozen Plasma into Peripheral Vein, Percutaneous Approach (ICD-10-PCS; 2024-12-05)
PROC: 30233N1 Transfusion of Nonautologous Red Blood Cells into Peripheral Vein, Percutaneous Approach (ICD-10-PCS; 2024-12-05)
PROC: 0DB78ZX Excision of Stomach, Pylorus, Via Natural or Artificial Opening Endoscopic, Diagnostic (ICD-10-PCS; principal; 2024-12-06)
PROC: CD171ZZ Planar Nuclear Medicine Imaging of Gastrointestinal Tract using Technetium 99m (Tc-99m) (ICD-10-PCS; 2024-12-08)
PROC: BW211ZZ Computerized Tomography (CT Scan) of Abdomen and Pelvis using Low Osmolar Contrast (ICD-10-PCS; 2024-12-09)
DX: K92.0 Hematemesis (principal); I81 Portal vein thrombosis; G93.41 Metabolic encephalopathy; K55.9 Vascular disorder of intestine, unspecified; I85.10 Secondary esophageal varices without bleeding; D68.9 Coagulation defect, unspecified; I95.9 Hypotension, unspecified; K76.6 Portal hypertension; R16.0 Hepatomegaly, not elsewhere classified; D62 Acute posthemorrhagic anemia; F19.90 Other psychoactive substance use, unspecified, uncomplicated; R18.8 Other ascites; D72.829 Elevated white blood cell count, unspecified; E80.6 Other disorders of bilirubin metabolism; K31.89 Other diseases of stomach and duodenum; K74.60 Unspecified cirrhosis of liver; Z88.8 Allergy status to other drugs, medicaments and biological substances; Z79.899 Other long term (current) drug therapy
CPT/HCPCS: 36415; 36430; 43239; 74177; 78278; 80053; 82103; 82140; 82248; 83036; 83605; 83735; 83880; 84100; 84132; 84145; 84443; 85007; 85025; 85027; 85610; 85730; 86704; 86706; 86709; 86803; 86885; 86900; 86901; 86920; 87040; 87081; 87522; 94640; 94760; 97110; 97162; 97530; 99152; 99291; A4615; A6213; A7015; A9560; G0378; J0171; J0610; J0696; J1200; J1938; J2250; J2354; J2405; J2470; J2543; J3010; J7030; J7040; J7050; P9016; P9059; Q9963; Q9967